=== PATIENT | female | born 1960 | race Caucasian/White ===

== ENCOUNTER 2024-07-31 13:48 | Inpatient (IN) | payer OTHER, SELFPAY ==
--- OUTSIDE RECORDS SUMMARY | 2024-07-31 15:12 | XMS_ITS | Clinical Summary ---
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 5 Active OLANZapine (ZyPREXA ZYDIS) 5 mg disintegrating tablet 1 tablet (5 mg total) if needed (daily). 5 Active hydrOXYzine pamoate (VISTARIL) 50 mg capsule 1 capsule (50 mg total) every 4 (four) hours if needed for anxiety. 5 Active metFORMIN (GLUCOPHAGE) 500 mg tablet Take 1 tablet (500 mg total) by mouth 1 (one) time each day. 5 Active cloNIDine (CATAPRES) 0.1 mg tablet 1 tablet (0.1 mg total) 2 (two) times a day if needed (2nd line anxiety). 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 07/08/2024 11:07 AM EST - 07/09/2024 6:40 PM [facility] Emergency [address] [place] [address] Gabi Abreu, Mart Espinoza, Everette Carlos MD Depressive conduct disorder (Primary Dx); Schizoaffective disorder, unspecified type (CMS/HCC); Severe recurrent major depression with psychotic features (CMS/HCC) Discharge Disposition: Another Health Care Institution Not Defined 06/25/2024 2:21 AM EST - 06/25/2024 9:26 AM [facility] Emergency [address] [place] [address] Discharge Disposition: Left Against Medical Advice 06/24/2024 9:11 PM EST - 06/24/2024 11:19 PM [facility] Emergency [address] [place] [phone] Discharge Disposition: Left Against Medical Advice 05/08/2024 5:16 AM EST - 05/08/2024 8:36 AM [facility] Emergency [address] [place] [phone] Jayson Dueñas MD Kenton, Mark A, MD Abdominal pain with vomiting (Primary Dx) Discharge Disposition: Home or Self Care from Last 3 Months Surgical History Surgery Date Site/Laterality Comments SECTION FOOT SURGERY Medical History Medical History Date Comments Diabetes mellitus (CMS/HCC) Hypertension High cholesterol Arthritis Neuropathy Social History Tobacco Use Types Packs/Day Years Used Date Smoking Tobacco: Every Day Cigarettes Smokeless Tobacco: Never Tobacco Cessation:Ready to Q uit: Not Asked; Counseling Given: Not Answered Alcohol Use Standard Drinks/Week Comments Not Currently 0 (1 standard drink = 0.6 oz pur e alcohol) Comments Unknown Sex and Gender Information Value Date Recorded Sex Assigned at Female 06/24/2024 11:14 PM EST Legal Sex Female 2:21 PM EST Gender Identity Female 06/24/2024 11:14 PM EST Sexual Orientation Straight 06/24/2024 11 :14 PM EST Obstetrics History Last Filed Vital Signs Vital Sign Reading Time Taken Comments Blood Pressure 116/89 07/31/2024 1:01 PM EST Pulse 91 07/31/2024 1:01 PM EST Temperature 36.8 ??C (98.3 ??F) 07/31/2024 3:51 AM ES T Respiratory Rate 20 07/31/2024 1:01 PM EST Oxygen Saturation 97% 07/31/2024 1:01 PM EST Inhaled Oxygen Concentration - - Weight 90.7 kg (200 lb) 07/30/2024 4:55 PM EST Height 160 cm (5' 3 ) 07/30/2024 4:55 PM EST Body Mass Index 35.43 07/30/2024 4:55 PM EST Plan of Treatment Health Maintenance Due Date Last Done Comments Breast Cancer Screening 1960 Diabetes: Annual Foot Exam 11/30/1969 Diabetes: Annual Retina Eye Exam 11/30/1969 Cervical Cancer Screening: Pap Smear 11/30/1980 Pneumococcal Vaccine: 50+ Years (2 of 2 - PCV) 07/08/2009 07/08/2008 Pneumococcal Vaccine: Pediatrics (0 to 5 Years) and At-Risk Patients (6 to 64 Years) (2 of 2 - PCV) 07/08/2009 07/08/2008 Zoster Vaccines (1 of 2) 11/30/2009 Colorectal Cancer Screening: Colonoscopy 05/18/2022 Depression Screening 05/18/2022 HIV Screening 05/18/2022 Hepatitis C Screening 05/18/2022 Social Influencers of Health Screening 05/18/2022 COVID-19 Vaccine ( season) 2024 Influenza Vaccine (#1) 2024 07/19/2017, 2007 Diabetes: Annual Urine Albumin-Creatinine Ratio (uACR) 05/08/2024 Diabetes: Blood Sugar Control Test (HGBA1C) 01/10/2025 07/13/2024 Diabetes: Annual GFR (Glomerular Filtration Rate) 07/30/2025 07/30/2024, 07/13/2024, 07/08/2024, Additional history exists Hypertension/CHF/CAD Annual BMP Blood Test 07/30/2025 07/30/2024, 07/13/2024, 07/08/2024, Additional history exists DTaP,Tdap,and Td Vaccines (3 - Td or Tdap) 11/04/2026 11/04/2016, 11/09/2012 Cholesterol Screening (Lipid Panel) 07/13/2029 07/13/2024 RSV Immunization Patients 60+ Years Old (1 - 1-dose 75+ series) 11/30/2034 HIB Vaccines Aged Out No longer eligi ble based on patient's age to complete this topic HPV Vaccines Aged Out No longer eligi ble based on patient's age to complete this topic Hepatitis A Vaccines Aged Out No long er eligible based on patient's age to complete this topic Hepatitis B Vaccines Aged Out No long er eligible based on patient's age to complete this topic IPV Vaccines Aged Out No longer eligi ble based on patient's age to complete this topic MMR Vaccines Aged Out No longer eligi ble based on patient's age to complete this topic Meningococcal ACWY Vaccine Aged Out N o longer eligible based on patient's age to complete this topic Meningococcal B Vacine Aged Out No lo nger eligible based on patient's age to complete this topic RSV Immunization Patients Under 20 months Aged Out No longer eligible based on patient's age to complete this topic Varicella Vaccines Aged Out No longer eligible based on patient's age to complete this topic Procedures Procedure Name Priority Date/Time Associated Diagnosis Comments METHADONE SCREEN, URINE STAT 07/30/19 8:05 PM EST PHENCYCLIDINE, URINE STAT 07/30/2024 8:05 PM EST BUPRENORPHINE SCREEN, URINE STAT 07/30/2024 8:05 PM EST DRUG ABUSE SCREEN 8A PANEL, URINE STAT 07/30/2024 8:05 PM EST ECG 12-LEAD STAT 07/30/2024 5:36 PM EST CBC WITH AUTO DIFFERENTIAL STAT 07/30/2024 5:26 PM EST SALICYLATE LEVEL STAT 07/30/2024 5:26 PM EST ACETAMINOPHEN LEVEL STAT 07/30/2024 5 :26 PM EST ETHANOL STAT 07/30/2024 5:26 PM EST COMPREHENSIVE METABOLIC PANEL STAT 07/30/2024 5:26 PM EST CBC AND DIFFERENTIAL STAT 07/30/2024 5:26 PM EST CBC WITH AUTO DIFFERENTIAL Routine 07/13/2024 7:00 AM EST 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 (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 HEMOGLOBIN A1C Routine 07/13/2024 7:00 AM EST Other shelter (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 CBC AND DIFFERENTIAL Routine 07/13/2024 7:00 AM EST Other shelter (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 THYROID STIMULATING HORMONE WITH REFLEX TO FREE T4 AND FREE T3 Routine 07/13/2024 7:00 AM EST Other shelter (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 LIPID PANEL WITH REFLEX TO DIRECT LDL Routine 07/13/2024 7:00 AM EST Other 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 (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 COMPREHENSIVE METABOLIC PANEL Routine 07/13/2024 7:00 AM EST Other shelter (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 [id number], QUALITATIVE REAL-TIME RT-PCR, INTERNAL LAB STAT 07/09/2024 5:49 PM EST POCT GLUCOSE BLOOD Routine 07/08/2024 5: 07 PM EST POCT GLUCOSE BLOOD Routine 07/08/2024 4: 19 PM EST POCT GLUCOSE BLOOD Routine 07/08/2024 2: 03 PM EST METHADONE SCREEN, URINE STAT 07/08/19 1:27 PM EST PHENCYCLIDINE, URINE STAT 07/08/2024 1:27 PM EST BUPRENORPHINE SCREEN, URINE STAT 07/08/2024 1:27 PM EST DRUG ABUSE SCREEN 8A PANEL, URINE STAT 07/08/2024 1:27 PM EST ECG 12-LEAD STAT 07/08/2024 12:01 PM EST CBC WITH AUTO DIFFERENTIAL STAT 07/08/2024 11:29 AM EST SALICYLATE LEVEL STAT 07/08/2024 11:2 9 AM EST ACETAMINOPHEN LEVEL STAT 07/08/2024 1 1:29 AM EST ETHANOL STAT 07/08/2024 11:29 AM EST COMPREHENSIVE METABOLIC PANEL STAT 07/08/2024 11:29 AM EST CBC AND DIFFERENTIAL STAT 07/08/2024 11:29 AM EST ECG ANNOTATED 07/08/2024 CBC WITH AUTO DIFFERENTIAL STAT 06/24/2024 9:46 PM EST BETA HYDROXYBUTYRATE STAT 06/24/2024 9:46 PM EST LIPASE STAT 06/24/2024 9:46 PM EST COMPREHENSIVE METABOLIC PANEL STAT 06/24/2024 9:46 PM EST CBC AND DIFFERENTIAL STAT 06/24/2024 9:[address] ABDOMEN PELVIS W CONTRAST STAT 05/08/2024 6:45 AM EST CBC WITH AUTO DIFFERENTIAL STAT 05/08/2024 5:40 AM EST LIPASE STAT 05/08/2024 5:40 AM EST COMPREHENSIVE METABOLIC PANEL STAT 05/08/2024 5:40 AM EST CBC AND DIFFERENTIAL STAT 05/08/2024 5:40 AM EST from Last 3 Months Results * (ABNORMAL) Drug abuse screen 8a panel, urine (07/30/2024 8:05 PM EST) Only the most recent of2 resultswithin the time period is included. [facility] Amphetamine Screen, Ur Negative Negative LAB CHEMISTRY METHOD 5 9:25 PM [facility] LAB Comment:Certain OTC medicati ons containing ephedrine, phenylephrine, pseudoephedrine and phenylpropanolamine can cause false positive results. Barbiturate Screen, Ur Negative Negative LAB CHEMISTRY METHOD 5 9:25 PM [facility] Benzodiazepine Screen, Ur Negative Negative LAB CHEMISTRY METHOD 5 9:25 PM [facility] Cocaine Screen, Ur Positive(A ) Negative LAB CHEMISTRY METHOD 5 9:25 PM [facility] Opiate Screen, Ur Negative Negative LAB CHEMISTRY METHOD 5 9:25 PM [facility] Cannabinoid (THC) Screen, Ur Negative Negative LAB CHEMISTRY METHOD 5 9:25 PM [facility] Comment:Specimens from patie nts taking pantoprazole sodium (Protonix) have been shown to produce false positive results. Oxycodone Screen, Ur Negative Negative LAB CHEMISTRY METHOD 5 9:25 PM [facility] Fentanyl, Ur Negative Negative LAB CHEMISTRY METHOD 5 9:25 PM [facility] Urine Urine specimen obtained by clean catch procedure / Unknown Non-blood Collection / Unknown 07/30/2024 8:05 PM EST 07/30/2024 8:55 PM [facility] - 07/30/2024 9:25 PM EST Assay cutoffs: Amphetamines ? 1000 ng/mL Barbiturates ?200 ng/mL Benzodiazepines ?? 200 ng/mL Cocaine ? 300 ng/mL Fentanyl ?1 ng/mL Opiates ? 300 ng/mL Oxycodone ? 100 ng/mL THC ?50 ng/mL Semi-quantitative assay for screening purposes only. Unconfirmed screening result should not be used for non-medical purposes. *ALTERNATE METHOD CONFIRMATION DONE UPON REQUEST ONLY* Quintin Rodriguez MD LAB URINE ORDERABLES Final Resu lt Performing Organization Address [facility]/ZIP Co de Phone Number [facility] [address] [place] [address], * Buprenorphine screen, urine (07/30/2024 8:05 PM EST) Only the most recent of2 resultswithin the time period is included. [facility] Buprenorphine Screen Urine Negative Negative LAB CHEMISTRY METHOD 07/30/2024 9:25 PM EST [facility] Urine Urine specimen obtained by clean catch procedure / Unknown Non-blood Collection / Unknown 07/30/2024 8:05 PM EST 07/30/2024 8:55 PM EST Narrative [facility] - 07/30/2024 9:25 PM EST Assay cutoff 5 ng/mL Semi-quantitative assay for screening purposes only. Unconfirmed screening result should not be used for non-medical purposes. *ALTERNATE METHOD CONFIRMATION DONE UPON REQUEST ONLY* Quintin Rodriguez MD LAB URINE ORDERABLES Final Resu lt Performing Organization Address [facility]/ZIP Co de Phone Number [facility] [address] [place] [address], * Methadone, urine (07/30/2024 8:05 PM EST) Only the most recent of2 resultswithin the time period is included. [facility] Methadone Screen, Urine Negative Negative LAB CHEMISTRY METHOD 07/30/2024 9:25 PM EST [facility] Comment: Assay cutoff 300 ng/mL Semi-quantitative assay for screening purposes only. Unconfirmed screening result should not be used for non-medical purposes. *ALTERNATE METHOD CONFIRMATION DONE UPON REQUEST ONLY* Urine Urine specimen obtained by clean catch procedure / Unknown Non-blood Collection / Unknown 07/30/2024 8:05 PM EST 07/30/2024 8:55 PM EST Quintin Rodriguez MD LAB URINE ORDERABLES Final Resu lt Performing Organization Address [facility] de Phone Number [facility] [address] [place] [address], [place] [phone] * Phencyclidine, urine (07/30/2024 8:05 PM EST) Only the most recent of2 resultswithin the time period is included. [facility] PCP Scrn, Ur Negative Negative LAB CHEMISTRY METHOD 07/30/2024 9:25 PM EST [facility] Comment: Assay cutoff 25 ng/mL Semi-quantitative assay for screening purposes only. Unconfirmed screening result should not be used for non-medical purposes. *ALTERNATE METHOD CONFIRMATION DONE UPON REQUEST ONLY* Urine Urine specimen obtained by clean catch procedure / Unknown Non-blood Collection / Unknown 07/30/2024 8:05 PM EST 07/30/2024 8:55 PM EST Quintin Rodriguez MD LAB URINE ORDERABLES Final Resu lt Performing Organization Address [facility] Co de Phone Number [facility] [address] [place] [address], [place] [phone] * ECG 12 lead (07/30/2024 5:36 PM EST) Only the most recent of2 resultswithin the time period is included. Ventricular Rate ECG 85 BPM GEMUSE Atrial Rate 85 BPM GEMUSE P-R Interval 152 ms GEMUSE QRS Duration 88 ms GEMUSE Q-T Interval 370 ms GEMUSE QTc 440 ms GEMUSE P Wave [place] 42 degrees GEMUSE T [place] 20 degrees GEMUSE ECG Interpretation Normal sinus rhythm Normal ECG When compared with ECG of 08-JUL-2024 12:01, No significant change was found Confirmed by Salomon NANCE YUFENG ([id number]) on 07/30/2024 8:05:30 PM GEMUSE 07/30/2024 5:36 PM EST 07/30/2024 8:05 PM EST us Quintin Rodriguez MD ECG ORDERABLES Final Result GEMUSE * CBC auto differential (07/30/2024 5:26 PM EST) Only the most recent of5 resultswithin the time period is included. [facility] WBC 8.4 4.8 - 10.8 K/mcL LAB HEMETOLOGY METHOD 07/30/2024 5:53 PM [facility] RBC 4.30 3.80 - 4.80 M/mcL LAB HEMETOLOGY METHOD 07/30/2024 5:53 PM [facility] Hemoglobin 12.7 11.5 - 16.0 g/dL LAB HEMETOLOGY METHOD 07/30/2024 5:53 PM [facility] Hematocrit 38.2 35.0 - 47.0 % LAB HEMETOLOGY METHOD 07/30/2024 5:53 PM [facility] MCV 89.3 79.0 - 98.0 FL LAB HEMETOLOGY METHOD 07/30/2024 5:53 PM [facility] MCH 29.7 27.0 - 32.0 pcg LAB HEMETOLOGY METHOD 07/30/2024 5:53 PM [facility] LAB MCHC 33.2 32.0 - 37.0 g/dL LAB HEMETOLOGY METHOD 07/30/2024 5:53 PM [facility] RDW 13.2 11.0 - 15.0 % LAB HEMETOLOGY METHOD 07/30/2024 5:53 PM [facility] Platelets 244 130 - 400 K/mcL LAB HEMETOLOGY METHOD 07/30/2024 5:53 PM [facility] MPV 10.8 7.0 - 11.0 FL LAB HEMETOLOGY METHOD 07/30/2024 5:53 PM [facility] NRBC 0.0 <1.0 % LAB HEMETOLOGY METHOD 07/30/2024 5:53 PM [facility] NRBC Absolute 0.00 <0.10 K/mcL LAB HEMETOLOGY METHOD 07/30/2024 5:53 PM [facility] Neutrophils Relative 63.0 % LAB HEMETOLOGY METHOD 07/30/2024 5:53 PM [facility] Lymphocytes Relative 26.5 % LAB HEMETOLOGY METHOD 07/30/2024 5:53 PM [facility] Monocytes Relative 7.4 % LAB HEMETOLOGY METHOD 07/30/2024 5:53 PM [facility] Eosinophils Relative 2.3 % LAB HEMETOLOGY METHOD 07/30/2024 5:53 PM [facility] Basophils Relative 0.4 % LAB HEMETOLOGY METHOD 07/30/2024 5:53 PM [facility] Immature Granulocytes Relative 0.4 % LAB HEMETOLOGY METHOD 07/30/2024 5:53 PM [facility] Neutrophils Absolute 5.30 1.50 - 7.00 K/mcL LAB HEMETOLOGY METHOD 07/30/2024 5:53 PM [facility] Lymphocytes Absolute 2.22 1.00 - 5.00 K/mcL LAB HEMETOLOGY METHOD 07/30/2024 5:53 PM EST [facility] Monocytes Absolute 0.62 0.20 - 1.00 K/mcL LAB HEMETOLOGY METHOD 07/30/2024 5:53 PM EST [facility] Eosinophils Absolute 0.19 0.00 - 0.50 K/[facility] LAB HEMETOLOGY METHOD 07/30/2024 5:53 PM EST [facility] Basophils Absolute 0.03 0.00 - 0.20 K/[facility] LAB HEMETOLOGY METHOD 07/30/2024 5:53 PM EST [facility] Immature Granulocytes Absolute 0.03 0.00 - 0.03 K/[facility] LAB HEMETOLOGY METHOD 07/30/2024 5:53 PM [facility] Blood Venous blood specimen / Unknown Venipuncture / Unknown 07/30/2024 5:26 PM EST 07/30/2024 5:39 PM EST Quintin Rodriguez MD LAB BLOOD ORDERABLES Final Resu lt Performing Organization Address City/[facility]/ZIP Co de Phone Number [facility] [address] [place] [address], [place] [phone] * Ethanol (07/30/2024 5:26 PM EST) Only the most recent of2 resultswithin the time period is included. Ethanol Level 8 0 - 10 mg/dL LAB CHEMISTRY METHOD 07/30/2024 6:22 PM EST [facility] Blood Venous blood specimen / Unknown Venipuncture / Unknown 07/30/2024 5:26 PM EST 07/30/2024 5:39 PM EST Quintin Rodriguez MD LAB BLOOD ORDERABLES Final Resu lt Performing Organization Address City/[facility]/ZIP Co de Phone Number [facility] [address] [place] [address], [place] [phone] * (ABNORMAL) Acetaminophen level (07/30/2024 5:26 PM EST) Only the most recent of2 resultswithin the time period is included. Acetaminophen Level 2.3(L) 10.0 - 30.0 mcg/mL LAB CHEMISTRY METHOD 07/30/2024 6:06 PM EST [facility] Blood Venous blood specimen / Unknown Venipuncture / Unknown 07/30/2024 5:26 PM EST 07/30/2024 5:39 PM EST Qiuntin Rodriguez MD LAB BLOOD ORDERABLES Final Resu lt Performing Organization Address [facility]/ZIP Co de Phone Number [facility] [address] [place] [address], [place] [phone] * (ABNORMAL) Salicylate level (07/30/2024 5:26 PM EST) Only the most recent of2 resultswithin the time period is included. Salicylate Level 1.7(L) 2.0 - 29.0 mg/dL LAB CHEMISTRY METHOD 07/30/2024 6:06 PM EST [facility] Blood Venous blood specimen / Unknown Venipuncture / Unknown 07/30/2024 5:26 PM EST 07/30/2024 5:39 PM EST Quintin Rodriguez MD LAB BLOOD ORDERABLES Final Resu lt Performing Organization Address City/[facility]/ZIP Co de Phone Number [facility] [address] [place] [address], [place] [phone] * (ABNORMAL) Comprehensive metabolic panel (07/30/2024 5:26 PM EST) Only the most recent of5 resultswithin the time period is included. Sodium 136 133 - 145 mmol/L LAB CHEMISTRY METHOD 07/30/2024 6:22 PM EST [facility] Potassium 3.9 3.5 - 5.5 mmol/L LAB CHEMISTRY METHOD 07/30/2024 6:22 PM [facility] Chloride 106 96 - 110 mmol/L LAB CHEMISTRY METHOD 07/30/2024 6:22 PM [facility] CO2 23 21 - 32 mmol/L LAB CHEMISTRY METHOD 07/30/2024 6:22 PM [facility] Anion Gap 7 3 - 11 LAB CHEMISTRY METHOD 07/30/2024 6:22 PM [facility] Glucose 297(H) 70 - 100 mg/dL LAB CHEMISTRY METHOD 07/30/2024 6:22 PM [facility] BUN 12 5 - 25 mg/dL LAB CHEMISTRY METHOD 07/30/2024 6:22 PM [facility] Creatinine 0.90 0.50 - 1.10 mg/dL LAB CHEMISTRY METHOD 07/30/2024 6:22 PM [facility] eGFR 72 >=60 mL/min/1. 73m2 LAB CHEMISTRY METHOD 07/30/2024 6:22 PM [facility] Comment:Calculation based on the??Chronic Kidney Disease Epidemiology Collaboration (CKD-EPI) equation refit??without adjustment for race. BUN/Creatinine Ratio 13.3 LAB CHEMISTRY METHOD 07/30/2024 6:22 PM [facility] Calcium 9.1 8.5 - 10.5 mg/dL LAB CHEMISTRY METHOD 07/30/2024 6:22 PM [facility] AST (SGOT) 4(L) 10 - 42 unit/L LAB CHEMISTRY METHOD 07/30/2024 6:22 PM [facility] ALT (SGPT) 12 10 - 60 unit/L LAB CHEMISTRY METHOD 07/30/2024 6:22 PM [facility] Alkaline Phosphatase 160(H) 42 - 121 unit/L LAB CHEMISTRY METHOD 07/30/2024 6:22 PM [facility] Total Protein 6.2 6.0 - 8.0 g/dL LAB CHEMISTRY METHOD 07/30/2024 6:22 PM EST [facility] Albumin 3.1(L) 3.2 - 5.0 g/dL LAB CHEMISTRY METHOD 07/30/2024 6:22 PM EST [facility] Total Bilirubin 0.2 0.0 - 1.4 mg/dL LAB CHEMISTRY METHOD 07/30/2024 6:22 PM EST [facility] Blood Venous blood specimen / Unknown Venipuncture / Unknown 07/30/2024 5:26 PM EST 07/30/2024 5:39 PM EST Quintin Rodriguez MD LAB BLOOD ORDERABLES Final Resu lt Performing Organization Address City/[facility]/ZIP Co de Phone Number [facility] [address] [place] [address], [place] [phone] * Thyroid stimulating hormone with reflex to free t4 and free t3 (07/13/2024 7:00 AM EST) TSH 1.49 0.40 - 4.00 mcIU/mL LAB CHEMISTRY METHOD 07/13/2024 11:49 AM EST [facility] Blood Venous blood specimen / Unknown Venipuncture / Unknown 07/13/2024 7:00 AM EST 07/13/2024 10:13 AM EST Luisa Thomas LAB BLOOD ORDERABLES Final Resul t [facility] [address] [place] [address], [place] [phone] * (ABNORMAL) Lipid panel with reflex to direct LDL (07/13/2024 7:00 AM EST) Cholesterol 252(H) 0 - 200 mg/dL LAB CHEMISTRY METHOD 07/13/2024 11:42 AM EST [facility] Triglycerides 208(H) 0 - 150 mg/dL LAB CHEMISTRY METHOD 07/13/2024 11:42 AM EST [facility] HDL 45 >=40 mg/dL LAB CHEMISTRY METHOD 07/13/2024 11:42 AM [facility] LDL Calculated 165(H) 0 - 100 mg/dL LAB CHEMISTRY METHOD 07/13/2024 11:42 AM [facility] VLDL Cholesterol Damian 41.6 mg/dL LAB CHEMISTRY METHOD 07/13/2024 11:42 AM [facility] Non HDL Chol. (LDL+VLDL) 207(H) <145 mg/dL LAB CHEMISTRY METHOD 07/13/2024 11:42 AM [facility] Chol/HDL Ratio 5.6(H) 0.0 - 4.4 LAB CHEMISTRY METHOD 07/13/2024 11:42 AM [facility] Blood Venous blood specimen / Unknown Venipuncture / Unknown 07/13/2024 7:00 AM EST 07/13/2024 10:13 AM EST [facility] LAB BLOOD ORDERABLES Final Resul t [facility] [address] [place] [address], * (ABNORMAL) Hemoglobin A1c (07/13/2024 7:00 AM EST) Hemoglobin A1C 10.3(H) <6.5 % LAB CHEMISTRY METHOD 07/14/2024 9:18 AM EST [facility] Mean Bld Glu Estim. 249 mg/dL LAB CHEMISTRY METHOD 07/14/2024 9:18 AM EST [facility] Blood Venous blood specimen / Unknown Venipuncture / Unknown 07/13/2024 7:00 AM EST 07/13/2024 10:13 AM EST [facility] LAB BLOOD ORDERABLES Final Resul t [facility] [address] [place] [address], * (ABNORMAL) [id number], qualitative RT-PCR, internal lab (07/09/2024 5:49 PM EST) SARS COV-2 Detected( A) Not Detected LAB MICROBIOLOGY METHOD 07/09/2024 7:29 PM EST [facility] Swab Both anterior nares / Unknown Non-blood Collection / Unknown 07/09/2024 5:49 PM EST 07/09/2024 6:33 PM EST Narrative [facility] - 07/09/2024 7:29 PM EST Disclaimer: The manner in which this information is used to guide patient care is the responsibility of the healthcare provider. Testing was performed using the [employer] GeneXpert Xpress CoV-2 Plus PCR Assay. This test has been authorized by the FDA under an Emergency Use Authorization (EUA). This test is only authorized for the duration of time the declaration that circumstances exist justifying the authorization of the emergency use of in vitro diagnostic tests for detection of SARS-CoV-2 virus and/or diagnosis of COVID-19 infection under section 564(b)(1) of the Act, 21 U.S.C. 360bbb-3 (b)(1), unless the authorization is terminated or revoked sooner. Reference Range: Not Detected Fact sheet for Healthcare providers can be found at: https://www.fda.gov/media/233327/download Fact sheet for Healthcare patients can be found at: Http;//www.fda.gov/media/964658/download Everette Soni MD LAB MICROBIOLOGY - GENERAL ORDERABLES Final Result Performing Organization Address City/[facility]/ZIP Co de Phone Number [facility] [address] [place] [address], * (ABNORMAL) POCT Glucose, blood (07/08/2024 5:07 PM EST) Only the most recent of3 resultswithin the time period is included. [facility] Glucose POCT 209(H) 70 - 100 mg/dL 07/08/2024 5:08 PM EST [facility] Blood Capillary blood specimen / Unknown 07/08/2024 5:07 PM EST 07/08/2024 5:09 PM EST Gabi Abreu DO LAB POINT OF CARE TEST DOCKED DEVICE UNSOLICITED RESULTS Final Result Performing Organization Address City/[facility]/ZIP Co de Phone Number [facility] [address] [place] [address], * ECG-Annotated (07/08/2024) Provider Onbase MD ECG ORDERABLES Final Result * Beta hydroxybutyrate (06/24/2024 9:46 PM EST) [facility] Beta-Hydroxybu tyrate 1.1 0.2 - 2.8 mg/dL LAB CHEMISTRY METHOD 06/24/2024 10:21 PM EST [facility] Blood Venous blood specimen / Unknown Venipuncture / Unknown 06/24/2024 9:46 PM EST 06/24/2024 9:50 PM EST Cecilio MILLER LAB BLOOD ORDERABLES Final Resul t [facility] [address] [place] [address], [place] [phone] * (ABNORMAL) Lipase (06/24/2024 9:46 PM EST) Only the most recent of2 resultswithin the time period is included. [facility] Lipase 12(L) 13 - 75 unit/L LAB CHEMISTRY METHOD 06/24/2024 10:22 PM EST [facility] Blood Venous blood specimen / Unknown Venipuncture / Unknown 06/24/2024 9:46 PM EST 06/24/2024 9:50 PM EST Cecilio MILLER LAB BLOOD ORDERABLES Final Resul t [facility] [address] [place] [address], [place] [phone] * CT Abdomen Pelvis w Contrast (05/08/2024 6:45 AM EST) Anatomical Region Laterality Modality Body Computed Tomogra phy 05/08/2024 7:13 AM EST Impressions 05/08/2024 7:13 AM EST Impression: No acute process by CT. Several incidental findings. This document has been electronically signed by: Samir Mccormack MD on 05/08/2024 07:13:35 Narrative 05/08/2024 7:[address] abdomen and pelvis with contrast Comparison: None Findings: No consolidation or effusion. The liver, spleen, adrenal glands and pancreas are unremarkable. The gallbladder is surgically absent. Mild postsurgical prominence of the common bile duct. The kidneys, ureters and bladder are within normal limits. Uterus and adnexa are unremarkable. No bowel obstruction. Normal appendix. [id number] atherosclerotic disease. No acute osseous finding. Procedure Note Samir Mccormack MD - 05/08/2024 CT abdomen and pelvis with contrast Comparison: None Findings: No consolidation or effusion. The liver, spleen, adrenal glands and pancreas are unremarkable. The gallbladder is surgically absent. Mild postsurgical prominence ofthe common bile duct. The kidneys, ureters and bladder are within normal limits. Uterus and adnexa are unremarkable. No bowel obstruction. Normal appendix. [id number] atherosclerotic disease. No acute osseous finding. IMPRESSION: Impression: No acute process by CT. Several incidental findings. This document has been electronically signed by: Samir Mccormack MD on 05/08/2024 07:13:35 Jayson Dueñas MD IMG CT PROCEDURES Final Result from Last 3 Months Additional Health Concerns Infection Onset Date Last Indicated COVID-19 07/09/2024 07/09/2024 Insurance [facility] Care Teams [employer] Relationship Specialty Start Date End Date Physician, Pcp Unknown PCP - General 06/24/24
--- OUTSIDE RECORDS SUMMARY | 2024-07-31 15:12 | XMS_ITS | Encounter Summary ---
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 reports symptoms of MDD with psychotic features. She has no current access to psychiatric prescribers in the community. The patient would benefit from a voluntary IPLOC for medication management and stabilization. Recommendations were discussed with requesting provider. It was a pleasure to assist Dana Mon here at [facility]. This report is written and finalized by: Marlon Hathaway RN, PMHNP Student Behavioral Health Surpervisor [facility] (Tel): [phone] / : [phone] Cosigned by CECI Marquez at 07/09/2024 2:27 PM EST documented in this encounter Plan of Treatment Not on file documented as of this encounter Procedures Procedure Name Priority Date/Time Associated Diagnosis Comments [id number], QUALITATIVE REAL-TIME RT-PCR, INTERNAL LAB STAT 07/09/2024 5:49 PM EST POCT GLUCOSE BLOOD Routine 07/08/2024 5: 07 PM EST POCT GLUCOSE BLOOD Routine 07/08/2024 4: 19 PM EST POCT GLUCOSE BLOOD Routine 07/08/2024 2: 03 PM EST DRUG ABUSE SCREEN 8A PANEL, URINE STAT 07/08/2024 1:27 PM EST BUPRENORPHINE SCREEN, URINE STAT 07/08/2024 1:27 PM EST METHADONE SCREEN, URINE STAT 07/08/2024 1:27 PM EST PHENCYCLIDINE, URINE STAT 07/08/2024 1:27 PM EST ECG 12-LEAD STAT 07/08/2024 12:01 PM EST CBC WITH AUTO DIFFERENTIAL STAT 07/08/2024 11:29 AM EST CBC AND DIFFERENTIAL STAT 07/08/2024 11:29 AM EST ETHANOL STAT 07/08/2024 11:29 AM EST ACETAMINOPHEN LEVEL STAT 07/08/2024 1 1:29 AM EST SALICYLATE LEVEL STAT 07/08/2024 11:2 9 AM EST COMPREHENSIVE METABOLIC PANEL STAT 07/08/2024 11:29 AM EST ECG ANNOTATED 07/08/2024 documented in this encounter Results * (ABNORMAL) [id number], qualitative RT-PCR, internal lab (07/09/2024 5:49 PM EST) SARS COV-2 Detected( A) Not Detected LAB MICROBIOLOGY METHOD 07/09/2024 7:29 PM EST [facility] Swab Both anterior nares / Unknown Non-blood Collection / Unknown 07/09/2024 5:49 PM EST 07/09/2024 6:33 PM EST Narrative [facility] - 07/09/2024 7:29 PM EST Disclaimer: The manner in which this information is used to guide patient care is the responsibility of the healthcare provider. Testing was performed using the [employer] GeneXpert Xpress CoV-2 Plus PCR Assay. This [...] for Healthcare providers can be found at: https://www.fda.gov/media/168881/download Fact sheet for Healthcare patients can be found at: Http;//www.fda.gov/media/120634/download us Everette Soni MD LAB MICROBIOLOGY - GENERAL ORDERABLES Final Result [facility] [address] [place] [address], [place] [phone] * (ABNORMAL) POCT Glucose, blood (07/08/2024 5:07 PM EST) Glucose POCT 209(H) 70 - 100 mg/dL 07/08/2024 5:08 PM EST [facility] Blood Capillary blood specimen / Unknown 07/08/2024 5:07 PM EST 07/08/2024 5:09 PM EST Gabi Abreu LAB POINT OF CARE TEST DOCKED DEVICE UNSOLICITED RESULTS Final Result [facility] [address] [place] [address], [place] [phone] * (ABNORMAL) POCT Glucose, blood (07/08/2024 4:19 PM EST) Glucose POCT 236(H) 70 - 100 mg/dL 07/08/2024 4:22 PM EST [facility] Blood Capillary blood specimen / Unknown 07/08/2024 4:19 PM EST 07/08/2024 4:23 PM EST Gabi Abreu DO LAB POINT OF CARE TEST DOCKED DEVICE UNSOLICITED RESULTS Final Result [facility] [address] [place] [address], [place] [phone] * (ABNORMAL) POCT Glucose, blood (07/08/2024 2:03 PM EST) Glucose POCT 306(H) 70 - 100 mg/dL 07/08/2024 2:03 PM EST [facility] Blood Capillary blood specimen / Unknown 07/08/2024 2:03 PM EST 07/08/2024 2:04 PM EST Gabi Barrett Abreu LAB POINT OF CARE TEST DOCKED DEVICE UNSOLICITED RESULTS Final Result Performing Organization Address [facility] Co de Phone Number [facility] [address] [place] [address], [place] [phone] * Methadone, urine (07/08/2024 1:27 PM EST) Methadone Screen, Urine Negative Negative LAB CHEMISTRY METHOD 07/08/2024 2:24 PM EST [facility] Comment: Assay cutoff 300 ng/mL Semi-quantitative assay for screening purposes only. Unconfirmed screening result should not be used for non-medical purposes. *ALTERNATE METHOD CONFIRMATION DONE UPON REQUEST ONLY* Urine Urine specimen obtained by clean catch procedure / Unknown Non-blood Collection / Unknown 07/08/2024 1:27 PM EST 07/08/2024 1:51 PM EST Dung Sterling Barrett Abreu LAB URINE ORDERABLES Suze l Result Performing Organization Address [facility] de Phone Number [facility] [address] [place] [address], [place] [phone] * Phencyclidine, urine (07/08/2024 1:27 PM EST) PCP Scrn, Ur Negative Negative LAB CHEMISTRY METHOD 07/08/2024 2:24 PM EST [facility] Comment: Assay cutoff 25 ng/mL Semi-quantitative assay for screening purposes only. Unconfirmed screening result should not be used for non-medical purposes. *ALTERNATE METHOD CONFIRMATION DONE UPON REQUEST ONLY* Urine Urine specimen obtained by clean catch procedure / Unknown Non-blood Collection / Unknown 07/08/2024 1:27 PM EST 07/08/2024 1:51 PM EST Gabi Barrett Abreu LAB URINE ORDERABLES Suze l Result Performing Organization Address [facility]/ZIP Co de Phone Number [facility] [address] [place] [address], [place] [phone] * Buprenorphine screen, urine (07/08/2024 1:27 PM EST) [facility] Buprenorphine Screen Urine Negative Negative LAB CHEMISTRY METHOD 07/08/2024 2:54 PM EST [facility] Urine Urine specimen obtained by clean catch procedure / Unknown Non-blood Collection / Unknown 07/08/2024 1:27 PM EST 07/08/2024 1:51 PM EST [facility] - 07/08/2024 2:54 PM EST Assay cutoff 5 ng/mL Semi-quantitative assay for screening purposes only. Unconfirmed screening result should not be used for non-medical purposes. *ALTERNATE METHOD CONFIRMATION DONE UPON REQUEST ONLY* Gabi Greenfieldny Brady DO LAB URINE ORDERABLES Suze l Result [facility] [address] [place] [address], [place] [phone] * (ABNORMAL) Drug abuse screen 8a panel, urine (07/08/2024 1:27 PM EST) [facility] Amphetamine Screen, Ur Negative Negative LAB CHEMISTRY METHOD 2:24 PM [facility] Comment:Certain OTC medicati ons containing ephedrine, phenylephrine, pseudoephedrine and phenylpropanolamine can cause false positive results. Barbiturate Screen, Ur Negative Negative LAB CHEMISTRY METHOD 5 2:24 PM EST [facility] Benzodiazepine Screen, Ur Negative Negative LAB CHEMISTRY METHOD 5 2:24 PM [facility] Cocaine Screen, Ur Positive(A ) Negative LAB CHEMISTRY METHOD 5 2:24 PM [facility] Opiate Screen, Ur Negative Negative LAB CHEMISTRY METHOD 5 2:24 PM [facility] Cannabinoid (THC) Screen, Ur Negative Negative LAB CHEMISTRY METHOD 5 2:24 PM EST [facility] Comment:Specimens from patie nts taking pantoprazole sodium (Protonix) have been shown to produce false positive results. Oxycodone Screen, Ur Negative Negative LAB CHEMISTRY METHOD 5 2:24 PM EST [facility] Fentanyl, Ur Negative Negative LAB CHEMISTRY METHOD 5 2:24 PM EST [facility] Urine Urine specimen obtained by clean catch procedure / Unknown Non-blood Collection / Unknown 07/08/2024 1:27 PM EST 07/08/2024 1:51 PM EST Narrative [facility] - 07/08/2024 2:24 PM EST Assay cutoffs: Amphetamines ? 1000 ng/mL Barbiturates ?200 ng/mL Benzodiazepines ?? 200 ng/mL Cocaine ? 300 ng/mL Fentanyl ?1 ng/mL Opiates ? 300 ng/mL Oxycodone ? 100 ng/mL THC ?50 ng/mL Semi-quantitative assay for screening purposes only. Unconfirmed screening result should not be used for non-medical purposes. *ALTERNATE METHOD CONFIRMATION DONE UPON REQUEST ONLY* Gabi Abreu DO LAB URINE ORDERABLES Suze l Result [facility]) [facility] [address] [place] [address], * ECG 12 lead (07/08/2024 12:01 PM EST) Ventricular Rate ECG 81 BPM GEM[facility] Atrial Rate 81 BPM GEMUSE P-R Interval 134 ms GEMUSE QRS Duration 86 ms GEMUSE Q-T Interval 378 ms GEMUSE QTc 439 ms GEMUSE P Wave [place] 51 degrees GEMUSE R [place] 5 degrees GEMUSE T [place] 21 degrees GEMUSE ECG Interpretation Normal sinus rhythm Normal ECG When compared with ECG of 09-FEB-2018 23:56, Premature ventricular complexes are no longer Present Confirmed by Salomon NANCE YUFENG ([id number]) on 07/08/2024 4:00:55 PM GEMUSE 07/08/2024 12:0 1 PM EST 07/08/2024 4:00 PM EST us Dungkeisha Sterling Greenfieldny Brady DO ECG ORDERABLES Final Res ult GEMUSE * CBC auto differential (07/08/2024 11:29 AM EST) WBC 7.9 4.8 - 10.8 K/mcL LAB HEMETOLOGY METHOD 07/08/2024 11:43 AM [facility] RBC 4.60 3.80 - 4.80 M/mcL LAB HEMETOLOGY METHOD 07/08/2024 11:43 AM [facility] Hemoglobin 13.5 11.5 - 16.0 g/dL LAB HEMETOLOGY METHOD 07/08/2024 11:43 AM [facility] Hematocrit 40.8 35.0 - 47.0 % LAB HEMETOLOGY METHOD 07/08/2024 11:43 AM [facility] MCV 88.5 79.0 - 98.0 FL LAB HEMETOLOGY METHOD 07/08/2024 11:43 AM [facility] MCH 29.3 27.0 - 32.0 pcg LAB HEMETOLOGY METHOD 07/08/2024 11:43 AM [facility] MCHC 33.1 32.0 - 37.0 g/dL LAB HEMETOLOGY METHOD 07/08/2024 11:43 AM [facility] RDW 12.8 11.0 - 15.0 % LAB HEMETOLOGY METHOD 07/08/2024 11:43 AM [facility] Platelets 262 130 - 400 K/mcL LAB HEMETOLOGY METHOD 07/08/2024 11:43 AM [facility] MPV 10.5 7.0 - 11.0 FL LAB HEMETOLOGY METHOD 07/08/2024 11:43 AM [facility] NRBC 0.0 <1.0 % LAB HEMETOLOGY METHOD 07/08/2024 11:43 AM [facility] NRBC Absolute 0.00 <0.10 K/mcL LAB HEMETOLOGY METHOD 07/08/2024 11:43 AM [facility] Neutrophils Relative 63.1 % LAB HEMETOLOGY METHOD 07/08/2024 11:43 AM [facility] Lymphocytes Relative 27.8 % LAB HEMETOLOGY METHOD 07/08/2024 11:43 AM [facility] Monocytes Relative 6.2 % LAB HEMETOLOGY METHOD 07/08/2024 11:43 AM [facility] Eosinophils Relative 2.0 % LAB HEMETOLOGY METHOD 07/08/2024 11:43 AM [facility] Basophils Relative 0.5 % LAB HEMETOLOGY METHOD 07/08/2024 11:43 AM [facility] Immature Granulocytes Relative 0.4 % LAB HEMETOLOGY METHOD 07/08/2024 11:43 AM [facility] Neutrophils Absolute 4.96 1.50 - 7.00 K/mcL LAB HEMETOLOGY METHOD 07/08/2024 11:43 AM [facility] Lymphocytes Absolute 2.19 1.00 - 5.00 K/mcL LAB HEMETOLOGY METHOD 07/08/2024 11:43 AM [facility] Monocytes Absolute 0.49 0.20 - 1.00 K/mcL LAB HEMETOLOGY METHOD 07/08/2024 11:43 AM [facility] Eosinophils Absolute 0.16 0.00 - 0.50 K/[facility] LAB HEMETOLOGY METHOD 07/08/2024 11:43 AM EST [facility] Basophils Absolute 0.04 0.00 - [facility] 07/08/2024 11:43 AM EST [facility] Immature Granulocytes Absolute 0.03 0.00 - 0.03 [facility] LAB HEMETOLOGY METHOD 07/08/2024 11:43 AM EST [facility] Blood Venous blood specimen / Unknown Venipuncture / Unknown 07/08/2024 11:29 AM EST 07/08/2024 11:36 AM EST [facility] BLOOD ORDERABLES Suze l Result Performing Organization Address [facility]/ZIP Co de Phone Number [facility] [address] [place] [address], [place] [phone] * (ABNORMAL) Salicylate level (07/08/2024 11:29 AM EST) Salicylate Level <1.7(L) 2.0 - 29.0 mg/dL LAB CHEMISTRY METHOD 07/08/2024 12:23 PM [facility] Blood Venous blood specimen / Unknown Venipuncture / Unknown 07/08/2024 11:29 AM EST 07/08/2024 11:36 AM EST [facility] Arnold Abreu LAB BLOOD ORDERABLES Suze l Result [facility] [address] [place] [address], [place] [phone] * (ABNORMAL) Acetaminophen level (07/08/2024 11:29 AM EST) Acetaminophen Level <2.0(L) 10.0 - 30.0 mcg/mL LAB CHEMISTRY METHOD 07/08/2024 12:23 PM EST [facility] Blood Venous blood specimen / Unknown Venipuncture / Unknown 07/08/2024 11:29 AM EST 07/08/2024 11:36 AM EST Dung Sterling Abreu LAB BLOOD ORDERABLES Suze l Result Performing Organization Address [facility]/ZIP Co de Phone Number [facility] [address] [place] [address], [place] [phone] * Ethanol (07/08/2024 11:29 AM EST) Ethanol Level <3 0 - 10 mg/dL LAB CHEMISTRY METHOD 07/08/2024 12:24 PM [facility] Blood Venous blood specimen / Unknown Venipuncture / Unknown 07/08/2024 11:29 AM EST 07/08/2024 11:36 AM EST [facility] Sterling Barrett [facility] LAB BLOOD ORDERABLES Suze l Result Performing Organization Address City/[facility]/ZIP Co de Phone Number [facility] [address] [place] [address], [place] [phone] * (ABNORMAL) Comprehensive metabolic panel (07/08/2024 11:29 AM EST) Sodium 136 133 - 145 mmol/L LAB CHEMISTRY METHOD 07/08/2024 12:23 PM [facility] Potassium 4.4 3.5 - 5.5 mmol/L LAB CHEMISTRY METHOD 07/08/2024 12:23 PM [facility] Chloride 104 96 - 110 mmol/L LAB CHEMISTRY METHOD 07/08/2024 12:23 PM [facility] CO2 25 21 - 32 mmol/L LAB CHEMISTRY METHOD 07/08/2024 12:23 PM [facility] Anion Gap 7 3 - 11 LAB CHEMISTRY METHOD 07/08/2024 12:23 PM [facility] Glucose 334(H) 70 - 100 mg/dL LAB CHEMISTRY METHOD 07/08/2024 12:23 PM [facility] BUN 12 5 - 25 mg/dL LAB CHEMISTRY METHOD 07/08/2024 12:23 PM [facility] Creatinine 0.95 0.50 - 1.10 mg/dL LAB CHEMISTRY METHOD 07/08/2024 12:23 PM [facility] eGFR 67 >=60 mL/min/1. 73m2 LAB CHEMISTRY METHOD 07/08/2024 12:23 PM [facility] Comment:Calculation based on the??Chronic Kidney Disease Epidemiology Collaboration (CKD-EPI) equation refit??without adjustment for race. BUN/Creatinine Ratio 12.6 LAB CHEMISTRY METHOD 07/08/2024 12:23 PM [facility] Calcium 9.0 8.5 - 10.5 mg/dL LAB CHEMISTRY METHOD 07/08/2024 12:23 PM [facility] AST (SGOT) 14 10 - 42 unit/L LAB CHEMISTRY METHOD 07/08/2024 12:23 PM [facility] Comment:Results verified by repeat testing ALT (SGPT) 17 10 - 60 unit/L LAB CHEMISTRY METHOD 07/08/2024 12:23 PM [facility] Alkaline Phosphatase 187(H) 42 - 121 unit/L LAB CHEMISTRY METHOD 07/08/2024 12:23 PM [facility] Total Protein 6.2 6.0 - 8.0 g/dL LAB CHEMISTRY METHOD 07/08/2024 12:23 PM [facility] Albumin 3.0(L) 3.2 - 5.0 g/dL LAB CHEMISTRY METHOD 07/08/2024 12:23 PM [facility] Total Bilirubin 0.1 0.0 - 1.4 mg/dL LAB CHEMISTRY METHOD 07/08/2024 12:23 PM [facility] Blood Venous blood specimen / Unknown Venipuncture / Unknown 07/08/2024 11:29 AM EST 07/08/2024 11:36 AM EST Gabi Abreu DO LAB BLOOD ORDERABLES Suze l Result [facility] ([facility]) [facility] [address] [place] [address], * ECG-Annotated (07/08/2024) us Provider Onbase MD ECG ORDERABLES Final Result documented in this encounter Visit Diagnoses Diagnosis 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 Schizoaffective disorder, unspecified type (CMS/HCC) Severe recurrent major depression with psychotic features (CMS/HCC) Major depressive disorder, recurrent episode, severe, specified as with psychotic behavior documented in this encounter Administered Medications Inactive Administered Medications - up to 3 most recent administrations Medication Order MAR Action Action Date Dose Rate Site sodium chloride 0.9 % bolus 1,000 mL 1,000 mL, intravenous, at 2,000 mL/hr, Administer over 30 Minutes, Once, On Mon07/08/24 at 1522, For 1 dose New Bag 07/08/2024 3:34 PM EST 1,000 mL 2000 mL/hr sodium chloride 0.9 % bolus 500 mL 500 mL, intravenous, at 1,000 mL/hr, Administer over 30 Minutes, Once, On Mon07/08/24 at 1632, For 1 dose New Bag 07/08/2024 4:11 PM EST 500 mL 1000 mL/hr documented in this encounter Active and Recently Administered Medications Times are shown in EST. Scheduled Medication Order 07/07/2024 07/08/2024 07/09/2024 sodium chloride 0.9 % bolus 1,000 mL (COMPLETED) 1,000 mL, intravenous, at 2,000 mL/hr, Administer over 30 Minutes, Once, On Mon07/08/24 at 1522, For 1 dose 1534 (New Bag - Provider: Tammie Meek, RN)[id number] (Stopped - Provider: Cynthia Llanos RN) sodium chloride 0.9 % bolus 500 mL (COMPLETED) 500 mL, intravenous, at 1,000 mL/hr, Administer over 30 Minutes, Once, On 07/08/24 at 1632, For 1 dose 1611 (New Bag - Provider: Tammie Meek, RN)1712 (Stopped - Provider: Rosalia Meek RN) documented in this encounter Orders Lab Orders Without Results Count Last Ordered D ate First Ordered Date POCT GLUCOSE, BLOOD 07/08/2024 Consult Count Last Ordered Date First Orde red Date IP CONSULT TO WARP KNITTER 07/08/2024 documented in this encounter Care Teams Anchorman Relationship Specialty Start Date End Date Physician, Pcp Unknown PCP - General 06/24/24 documented as of this encounter
--- OUTSIDE RECORDS SUMMARY | 2024-07-31 15:12 | XMS_ITS | Encounter Summary ---
Author Organization [facility] Address [address] [place] [address] Care Team Providers Care Retail Loan Originator Assistant Name Role Phone Physician, Pcp Unknown Primary Care Provider Mai vailable Encounter Details Date Type Department Care Team (Late st Contact Info) Description 07/13/2024 Lab Requisition [facility] - Main Lab [address] [facility] [place] [phone] [address] Other mcc (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 Social History Tobacco Use Types Packs/Day Years [...] PM EST documented as of this encounter Plan of Treatment Not on file documented as of this encounter Procedures Procedure Name Priority Date/Time Associated Diagnosis Comments THYROID STIMULATING HORMONE WITH REFLEX TO FREE T4 AND FREE T3 Routine 07/13/2024 7:00 AM EST Other terminal gauger supervisor (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 LIPID PANEL WITH REFLEX TO DIRECT LDL Routine 07/13/2024 7:00 AM EST Other terminal gauger supervisor (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 CBC WITH AUTO DIFFERENTIAL Routine 07/13/2024 7:00 AM EST Other terminal gauger supervisor (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 CBC AND DIFFERENTIAL Routine 07/13/2024 7:00 AM EST Other mcc (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 HEMOGLOBIN A1C Routine 07/13/2024 7:00 AM EST Other mcc (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 COMPREHENSIVE METABOLIC PANEL Routine 07/13/2024 7:00 AM EST Other mcc (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 documented in this encounter Results * (ABNORMAL) CBC auto differential (07/13/2024 7:00 AM EST) WBC 6.9 4.8 - 10.8 K/mcL LAB HEMETOLOGY METHOD 07/13/2024 11:[address] [facility] RBC 4.80 3.80 - 4.80 M/mcL LAB HEMETOLOGY METHOD 07/13/2024 11:[address] [facility] Hemoglobin 14.1 11.5 - 16.0 g/dL LAB HEMETOLOGY METHOD 07/13/2024 11:[address] [facility] Hematocrit 43.8 35.0 - 47.0 % LAB HEMETOLOGY METHOD 07/13/2024 11:[address] [facility] MCV 90.7 79.0 - 98.0 FL LAB HEMETOLOGY METHOD 07/13/2024 11:[address] [facility] MCH 29.2 27.0 - 32.0 pcg LAB HEMETOLOGY METHOD 07/13/2024 11:[address] [facility] MCHC 32.2 32.0 - 37.0 g/dL LAB HEMETOLOGY METHOD 07/13/2024 11:[address] [facility] RDW 12.7 11.0 - 15.0 % LAB HEMETOLOGY METHOD 07/13/2024 11:[address] [facility] Platelets 265 130 - 400 K/mcL LAB HEMETOLOGY METHOD 07/13/2024 11:[address] [facility] MPV 11.2(H) 7.0 - 11.0 FL LAB HEMETOLOGY METHOD 07/13/2024 11:[address] [facility] NRBC 0.0 <1.0 % LAB HEMETOLOGY METHOD 07/13/2024 11:[address] [facility] NRBC Absolute 0.00 <0.10 K/mcL LAB HEMETOLOGY METHOD 07/13/2024 11:[address] [facility] Neutrophils Relative 58.4 % LAB HEMETOLOGY METHOD 07/13/2024 11:[address] [facility] Lymphocytes Relative 31.4 % LAB HEMETOLOGY METHOD 07/13/2024 11:[address] [facility] Monocytes Relative 6.3 % LAB HEMETOLOGY METHOD 07/13/2024 11:[address] [facility] Eosinophils Relative 3.2 % LAB HEMETOLOGY METHOD 07/13/2024 11:[address] [facility] Basophils Relative 0.4 % LAB HEMETOLOGY METHOD 07/13/2024 11:[address] [facility] Immature Granulocytes Relative 0.3 % LAB HEMETOLOGY METHOD 07/13/2024 11:[address] [facility] Neutrophils Absolute 4.05 1.50 - 7.00 K/mcL LAB HEMETOLOGY METHOD 07/13/2024 11:[address] [facility] Lymphocytes Absolute 2.18 1.00 - 5.00 K/mcL LAB HEMETOLOGY METHOD 07/13/2024 11:[address] [facility] Monocytes Absolute 0.44 0.20 - 1.00 K/mcL LAB HEMETOLOGY METHOD 07/13/2024 11:[address] [facility] Eosinophils Absolute 0.22 0.00 - 0.50 K/[facility] LAB HEMETOLOGY METHOD 07/13/2024 11:09 AM EST [facility] Basophils Absolute 0.03 0.00 - 0.20 K/[facility] LAB HEMETOLOGY METHOD 07/13/2024 11:09 AM EST [facility] Immature Granulocytes Absolute 0.02 0.00 - 0.03 K/[facility] LAB HEMETOLOGY METHOD 07/13/2024 11:09 AM EST [facility] Blood Venous blood specimen / Unknown Venipuncture / Unknown 07/13/2024 7:00 AM EST 07/13/2024 10:13 AM EST [facility] LAB BLOOD ORDERABLES Final Resul t Performing Organization Address City/[facility]/ZIP Co de Phone Number [facility] [address] [place] [address], [place] [phone] * (ABNORMAL) Hemoglobin A1c (07/13/2024 7:00 AM EST) Hemoglobin A1C 10.3(H) <6.5 % LAB CHEMISTRY METHOD 07/14/2024 9:18 AM EST [facility] Mean Bld Glu Estim. 249 mg/dL LAB CHEMISTRY METHOD 07/14/2024 9:18 AM EST [facility] Blood Venous blood specimen / Unknown Venipuncture / Unknown 07/13/2024 7:00 AM EST 07/13/2024 10:13 AM EST [facility] LAB BLOOD ORDERABLES Final Resul t [facility] [address] [place] [address], [place] [phone] * Thyroid stimulating hormone with reflex to free t4 and free t3 (07/13/2024 7:00 AM EST) TSH 1.49 0.40 - 4.00 mcIU/mL LAB CHEMISTRY METHOD 07/13/2024 11:49 AM EST [facility] Blood Venous blood specimen / Unknown Venipuncture / Unknown 07/13/2024 7:00 AM EST 07/13/2024 10:13 AM EST [facility] LAB BLOOD ORDERABLES Final Resul t [facility] [address] [place] [address], [place] [phone] * (ABNORMAL) Lipid panel with reflex to direct LDL (07/13/2024 7:00 AM EST) Cholesterol 252(H) 0 - 200 mg/dL LAB CHEMISTRY METHOD 07/13/2024 11:[address] [facility] Triglycerides 208(H) 0 - 150 mg/dL LAB CHEMISTRY METHOD 07/13/2024 11:[address] [facility] HDL 45 >=40 mg/dL LAB CHEMISTRY METHOD 07/13/2024 11:[address] [facility] LDL Calculated 165(H) 0 - 100 mg/dL LAB CHEMISTRY METHOD 07/13/2024 11:[address] [facility] VLDL Cholesterol Damian 41.6 mg/dL LAB CHEMISTRY METHOD 07/13/2024 11:[address] [facility] Non HDL Chol. (LDL+VLDL) 207(H) <145 mg/dL LAB CHEMISTRY METHOD 07/13/2024 11:[address] [facility] Chol/HDL Ratio 5.6(H) 0.0 - 4.4 LAB CHEMISTRY METHOD 07/13/2024 11:[address] [facility] Blood Venous blood specimen / Unknown Venipuncture / Unknown 07/13/2024 7:00 AM EST 07/13/2024 10:13 AM EST [facility] Final Resul t [facility] [address] [place] [address], [place] [phone] * (ABNORMAL) Comprehensive metabolic panel (07/13/2024 7:00 AM EST) Sodium 137 133 - 145 mmol/L LAB CHEMISTRY METHOD 07/13/2024 11:[address] [facility] Potassium 4.7 3.5 - 5.5 mmol/L LAB CHEMISTRY METHOD 07/13/2024 11:[address] [facility] Chloride 103 96 - 110 mmol/L LAB CHEMISTRY METHOD 07/13/2024 11:[address] [facility] CO2 28 21 - 32 mmol/L LAB CHEMISTRY METHOD 07/13/2024 11:[address] [facility] Anion Gap 6 3 - 11 LAB CHEMISTRY METHOD 07/13/2024 11:[address] [facility] Glucose 274(H) 70 - 100 mg/dL LAB CHEMISTRY METHOD 07/13/2024 11:[address] [facility] BUN 17 5 - 25 mg/dL LAB CHEMISTRY METHOD 07/13/2024 11:[address] [facility] Creatinine 0.83 0.50 - 1.10 mg/dL LAB CHEMISTRY METHOD 07/13/2024 11:[address] [facility] eGFR 79 >=60 mL/min/1. 73m2 LAB CHEMISTRY METHOD 07/13/2024 11:[address] [facility] Comment:Calculation based on the??Chronic Kidney Disease Epidemiology Collaboration (CKD-EPI) equation refit??without adjustment for race. BUN/Creatinine Ratio 20.5 LAB CHEMISTRY METHOD 07/13/2024 11:[address] [facility] Calcium 9.0 8.5 - 10.5 mg/dL LAB CHEMISTRY METHOD 07/13/2024 11:[address] [facility] AST (SGOT) 17 10 - 42 unit/L LAB CHEMISTRY METHOD 07/13/2024 11:[address] [facility] ALT (SGPT) 32 10 - 60 unit/L LAB CHEMISTRY METHOD 07/13/2024 11:[address] [facility] Alkaline Phosphatase 151(H) 42 - 121 unit/L LAB CHEMISTRY METHOD 07/13/2024 11:[address] [facility] Total Protein 6.6 6.0 - 8.0 g/dL LAB CHEMISTRY METHOD 07/13/2024 11:[address] [facility] Albumin 3.3 3.2 - 5.0 g/dL LAB CHEMISTRY METHOD 07/13/2024 11:[address] [facility] Total Bilirubin 0.2 0.0 - 1.4 mg/dL LAB CHEMISTRY METHOD 07/13/2024 11:[address] [facility] Blood Venous blood specimen / Unknown Venipuncture / Unknown 07/13/2024 7:00 AM EST 07/13/2024 10:13 AM EST [facility] LAB BLOOD ORDERABLES Final Resul t [facility] [address] [place] [address], documented in this encounter Visit Diagnoses Diagnosis Other mcc (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 documented in this encounter Additional Health Concerns Infection Onset Date Last Indicated Resolved Time COVID-19 07/09/2024 07/09/2024 documented as of this encounter Care Teams Retail Loan Originator Assistant Relationship Specialty Start Date End Date Physician, Pcp Unknown PCP - General 06/24/24 documented as of this encounter
--- OUTSIDE RECORDS SUMMARY | 2024-07-31 15:12 | XMS_ITS | Encounter Summary ---
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 mg/dL LAB CHEMISTRY METHOD 07/30/2024 6:[address] [facility] AST (SGOT) 4(L) 10 - 42 unit/L LAB CHEMISTRY METHOD 07/30/2024 6:[address] [facility] ALT (SGPT) 12 10 - 60 unit/L LAB CHEMISTRY METHOD 07/30/2024 6:[address] [facility] Alkaline Phosphatase 160(H) 42 - 121 unit/L LAB CHEMISTRY METHOD 07/30/2024 6:[address] [facility] Total Protein 6.2 6.0 - 8.0 g/dL LAB CHEMISTRY METHOD 07/30/2024 6:[address] [facility] Albumin 3.1(L) 3.2 - 5.0 g/dL LAB CHEMISTRY METHOD 07/30/2024 6:[address] [facility] Total Bilirubin 0.2 0.0 - 1.4 mg/dL LAB CHEMISTRY METHOD 07/30/2024 6:[address] [facility] Blood Venous blood specimen / Unknown Venipuncture / Unknown 07/30/2024 5:26 PM EST 07/30/2024 5:39 PM EST us Quintin Rodriguez MD LAB BLOOD ORDERABLES Final Resu lt [facility] [address] [place] [address], documented in this encounter Visit Diagnoses Diagnosis Schizoaffective disorder, unspecified type (CMS/HCC)- Primary Major depressive disorder, recurrent episode, severe, with psychotic behavior (CMS/HCC) documented in this encounter Administered Medications Active Administered Medications - up to 3 most recent administrations Medication Order MAR Action Action Date Dose Rate Site acetaminophen (TYLENOL) tablet 1,000 mg 1,000 mg, oral, 3 times daily, First dose on Mon07/30/24 at 2100 Given 07/31/2024 1:13 PM EST 1,000 mg Given 07/31/2024 9:38 AM EST 1,000 mg Given 07/30/2024 9:56 PM EST 1,000 mg aluminum-magnesium hydroxide-simethicone (MAALOX) 200-200-20 mg/5 mL suspension 30 mL 30 mL, oral, Every 8 hours PRN, heartburn, indigestion, Starting on Mon07/30/24 at 1834 melatonin tablet 6 mg 6 mg, oral, Nightly PRN, sleep, Starting on Mon07/30/24 at 1834 metFORMIN (GLUCOPHAGE) tablet 500 mg 500 mg, oral, Daily, First dose on Mon07/30/24 at 1835 Given 07/31/2024 9:38 AM EST 500 mg Given 07/30/2024 6:56 PM EST 500 mg OLANZapine (ZyPREXA) tablet 10 mg 10 mg, oral, Nightly, First dose on Mon07/30/24 at 2100 Given 07/30/2024 9:56 PM EST 10 mg ondansetron ODT (ZOFRAN-ODT) disintegrating tablet 4 mg 4 mg, oral, Every 8 hours PRN, nausea, vomiting, Starting on Mon07/30/24 at 1834 documented in this encounter Historical Medications * This list may reflect changes made after this encounter. cloNIDine (CATAPRES) 0.1 mg tablet 1 tablet (0.1 mg total) 2 (two) times a day if needed (2nd line anxiety). 07/17/2024 metFORMIN (GLUCOPHAGE) 500 mg tablet Take 1 tablet (500 mg total) by mouth 1 (one) time each day. 07/17/2024 hydrOXYzine pamoate (VISTARIL) 50 mg capsule 1 capsule (50 mg total) every 4 (four) hours if needed for anxiety. 07/17/2024 OLANZapine (ZyPREXA ZYDIS) 5 mg disintegrating tablet 1 tablet (5 mg total) if needed (daily). 07/17/2024 OLANZapine (ZyPREXA) 10 mg tablet Take 1 tablet (10 mg total) by mouth at bedtime. 07/17/2024 added in this encounter Active and Recently Administered Medications Times are shown in EST. Scheduled Medication Order 07/29/2024 07/30/2024 07/31/2024 acetaminophen (TYLENOL) tablet 1,000 mg 1,000 mg, oral, 3 times daily, First dose on Mon07/30/24 at 2100 2156 (Given - Provider: Smiley Rossi RN) 0938 (Given - Provider: Cecilio Lombardi RN)1313 (Given - Provider: Cecilio Lombardi RN)2100 (Due) metFORMIN (GLUCOPHAGE) tablet 500 mg 500 mg, oral, Daily, First dose on Mon07/30/24 at 1835 1856 (Given - Provider: Sulma Anderson RN) 0938 (Given - Provider: Cecilio Lombardi RN) OLANZapine (ZyPREXA) tablet 10 mg 10 mg, oral, Nightly, First dose on Mon07/30/24 at 2100 2156 (Given - Provider: Smiley Rossi RN) 2100 (Due) PRN Medication Order 07/29/2024 07/30/2024 07/31/2024 aluminum-magnesium hydroxide-simethicone (MAALOX) 200-200-20 mg/5 mL suspension 30 mL 30 mL, oral, Every 8 hours PRN, heartburn, indigestion, Starting on Mon07/30/24 at 1834 cloNIDine (CATAPRES) tablet 0.1 mg 0.1 mg, oral, 2 times daily PRN, 2nd line anxiety, Starting on Mon07/30/24 at 1834 hydrOXYzine pamoate (VISTARIL) capsule 50 mg 50 mg, oral, Every 4 hours PRN, anxiety, Starting on Mon07/30/24 at 1834 melatonin tablet 6 mg 6 mg, oral, Nightly PRN, sleep, Starting on Mon07/30/24 at 1834 OLANZapine (ZyPREXA ZYDIS) disintegrating tablet 5 mg 5 mg, oral, As needed, daily, Starting on Mon07/30/24 at 1834, Tablets should NOT be swallowed whole, chewed, broken, or crushed. Place tablet in mouth, allow to dissolve, and then swallow saliva with or without water. ondansetron ODT (ZOFRAN-ODT) disintegrating tablet 4 mg 4 mg, oral, Every 8 hours PRN, nausea, vomiting, Starting on Mon07/30/24 at 1834 documented in this encounter Orders Medications Ordered That Matthew ht Not Have Been Administered Count Last Ordered Date First Ordered Date aluminum-magnesium hydroxide -simethicone (MAALOX) 200-200-20 mg/5 mL suspension 30 mL 1 07/30/2024 cloNIDine (CATAPRES) tablet 0.1 mg 1 2024 hydrOXYzine pamoate (VISTARI L) capsule 50 mg 1 07/30/2024 melatonin tablet 6 mg 1 07/30/2024 OLANZapine (ZyPREXA ZYDIS) d isintegrating tablet 5 mg 1 07/30/2024 ondansetron ODT (ZOFRAN-ODT) disintegrating tablet 4 mg 1 07/30/2024 Diet Count Last Ordered Date First Orde red Date ADULT DIET 1 07/30/2024 Consult Count Last Ordered Date First Orde red Date IP CONSULT TO STATION USHER 1 07/30/2024 Precaution Count Last Ordered Date First Orde red Date SUICIDE PRECAUTIONS 1 07/30/2024 Privilege Level Count Last Ordered Date First O rdered Date 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
--- NOTE | 2024-07-31 19:07 | PC.ADMIT ---
Addendum entered by Dalila Chavez RN 07/31/24 19:08: Allg of latex and cephalexin Original Note: Dana is 63 y/o female what was admitted to at 1355 from [facility] on CV and then later signed a 3 day for treatment of psychosis.? Pt is currently undomiciled.? Pt came into [facility] ED with a complaint of unmanaged AVH that was not controlled by medications.? Pt was alert and oriented to self, date and time. Pt was calm and cooperative with admission.? Mood is variable Pt reported AVH. Pt reported seeing ?monsters?.? Thought Process was linear. Pt denied SI or HI at this time.? Pt reported a good appetite.? Pt reported difficulty falling asleep and staying asleep.? Pt had poor focus.? Substance Issues - Pt denied using any substances but tox Screen positive for cocaine.? Medical Issues - Arthritis, Diabetes Mellitus, high cholesterol, HTN, Neuropathy Skin check was complete, bilat dry cracked feet noted.? Pt was placed on 15 min checks for safety. Medication non compliance last 2 months.
[2024-07-31] MEDS: hydrOXYzine HCL 25 MG TABLET PO (19:57)
[2024-07-31] MEDS: traZODone HCL 50 MG TABLET PO (19:57)
[2024-07-31 19:59] VITALS: BP 161/72; PULSE 82; RESP 18; TEMP 36.4; O2SAT 99
[2024-07-31 20:23] LABS: Glucose, Whole Blood 289 mg/dL (60-115)
[2024-08-01 07:43] VITALS: BP 149/89; PULSE 84; RESP 16; TEMP 36.4; O2SAT 100
[2024-08-01 07:45] LABS: Glucose, Whole Blood 301 mg/dL (60-115)
--- NOTE | 2024-08-01 10:17 | P.HPPS_ITS ---
[facility] Date of Service: 08/01/24 Chief Complaint: f25.0,f50.3,f3.3 Sources of Information: patient interviewed, chart reviewed and crisis/core team assessment reviewed HPI Subjective Notes: 3 Day Narrative: Patient is a 63-year-old female with history of schizoaffective disorder and cocaine use disorder who presented to ED due to auditory hallucinations telling her to use drugs and harm herself secondary to stating that her medications are not effective. Per crisis report, patient reports she does not want to harm herself or to use substances. history of multiple inpatient psychiatric hospitalizations. depressed mood, decreased sleep. Patient reports using crack earlier in the day. Utox positive for cocaine. History of multiple detox and rehab admissions. Denies SI/HI/VH. Does not have outpatient psychiatric providers. During admission assessment, patient presents alert oriented x3. Calm and cooperative. Patient reports she came to the hospital due to hearing things and seeing things . Patient stated, they were saying bad things to me and telling me to do drugs for 3 days. I was seeing monsters . Patient reports smoking crack to make the voices go away . She denies feeling anxious or depressed; patient stated, she just wants medications to not have hallucinations . Denies history of SA/SIB. She reports smoking crack once or twice a month . States she does not have outpatient psychiatric providers but would like referrals. Reports she has been getting her psychiatric medications through her PCP. Patient denies SI/HI/VH/AH is time. Signed 3 day notice that is up on 08/06/24. Past Psychiatric History: hx of multiple inpatient psychiatric hospitalizations. denies hx of SA/SIB. does not have outpatient psychiatric providers. Medical Evaluation Reviewed: Yes [facility] Family History: Denies. Social History: Homeless. Single. No children. Highest level of education completed 9th grade. Substance History: History of crack use. History of detox admissions. U tox positive for cocaine. Trauma History: Yes Diagnostics Vital Signs (24Hr): Vital Signs - 24 hr 07/31/24 19:59 08/01/24 07:43 Temperature 97.5 F 97.6 F Pulse Rate 82 84 Respiratory Rate 18 16 Blood Pressure 161/72 H 149/89 H Pulse Oximetry 99 100 Oxygen Delivery Method Room Air Room Air Labs Labs: Laboratory Results - last 48 hr 07/31/24 08/01/24 20:04 07:33 POC Glucose 289 H 301 H Meds/Allergies Meds Home Medications ?Medication ?Instructions ?Recorded ?Confirmed ?Type acetaminophen 650 mg 650 mg PO Q8H 07/31/24 07/31/24 History tablet,extended release clonidine HCl 0.1 mg tablet 0.1 mg PO BID PRN anxiety 07/31/24 07/31/24 History diclofenac sodium 3 % topical gel topical BID 07/31/24 History doxepin 25 mg capsule 25 mg PO BEDTIME 07/31/24 07/31/24 History hydroxyzine pamoate 50 mg capsule 50 mg PO Q4H PRN anxiety 07/31/24 07/31/24 History insulin glargine 100 unit/mL (3 unit subcut 07/31/24 History mL) subcutaneous pen (Lantus Solostar U-100 Insulin) ipratropium 20 mcg-albuterol 100 inhalation QID 07/31/24 History mcg/actuation mist for inhalation (Combivent Respimat) lisinopril 5 mg tablet mg DAILY 07/31/24 History lorazepam 1 mg tablet 1 mg PO DAILY PRN Anxiety 07/31/24 07/31/24 History metformin 500 mg tablet 500 mg PO DAILY 07/31/24 07/31/24 History olanzapine 10 mg tablet 10 mg PO BEDTIME 07/31/24 07/31/24 History olanzapine 5 mg disintegrating 5 mg PO DAILY PRN Agitation 07/31/24 07/31/24 History tablet risperidone 0.5 mg tablet 0.5 mg PO BEDTIME 07/31/24 07/31/24 History Allergies Allergies Allergy/AdvReac Type Severity Reaction Status Date / Time cephalexin [From Keflex] Allergy Unknown Verified 07/31/24 14:04 latex Allergy Unknown Verified 07/31/24 14:04 Mental Status Exam Mental Status Exam Narrative: Pt is alert and oriented; behavior is cooperative and calm; dressed in casual attire; mood is described as tired ; eye contact appropriate; Speech is normal rate, volume and not pressured; thought process is organized; Thought content is on tx; denies SI/HI/VH/AH. Assessment & Plan Assessment & Plan (1) Schizoaffective disorder: Status: Acute Code(s): F25.9 - Schizoaffective disorder, unspecified (2) Cocaine use disorder: Status: Acute Code(s): F14.10 - Cocaine abuse, uncomplicated (3) Homelessness: Status: Acute Code(s): Z59.00 - Homelessness unspecified Plan Patient is a 63-year-old female with history of schizoaffective disorder and cocaine use disorder who presented to ED due to auditory hallucinations telling her to use drugs and harm herself secondary to stating that her medications are not effective. Plan: 3 day notice 15 minute safety checks Continue home medications Referral to outpatient psychiatric providers Encourage groups Discharge planning Patient educated on: diagnosis and medication risk/benefits Reason for continued inpatient stay Substantial Risk for: med/psych decompensation Statement Statement: I have reviewed the history and physical and performed a pertinent examination on my patient. No changes have occurred unless specified. If the History and Physical was not performed prior to admission, the Hospitalist's service will be consulted for completing the admission physical. Time Spent With Patient Time: Total time managing care of this patient today _60___ minutes.
[2024-08-01 12:09] LABS: Glucose, Whole Blood 313 mg/dL (60-115)
--- NOTE | 2024-08-01 13:48 | HO.PM.IMCN ---
History of Present Illness Data of Consult Service Date: 08/01/24 Primary Care Provider: Unknown Physician HPI Reason for consult: Admission H&P Pt is a 63-year-old female with a PMH significant for HTN, insulin-dependent type 2 diabetes, and mood disorder who is admitted to [facility] for command auditory and visual hallucinations that are telling her to do drugs which pt reports she does not want to do. Hospitalist consult for admission H&P. Pt seen and evaluated in her room where she is resting comfortably in bed. Pt reports has not followed with a PCP in an unknown period of time. She is unable to state prescribes her medications. Pt currently denies any acute medical complaints. No chest pain/pressure, palpitations. Denies fever, chills, nausea, vomiting, abdominal pain. Denies headache acute vision changes. Review of Systems Review of Systems: Pt has no acute medical complaints at this time [facility] Medical History (Updated 08/01/24 @ 16:33 by PAUL Oseguera) Insulin dependent type 2 diabetes mellitus HTN (hypertension) Social History Household Members: None Housing: Homeless Do you presently have visiting nurse or other home services: No Patient Tobacco Use Status: Current everyday Tobacco user Cigarette Packs Per Day: 0.5 Cigarettes Per Day: 10.0 Smoked in Last 30 Days: Yes Patient Interested in Nicotine Replacement: Yes Patient Given Instructions on How to Stop Smoking: Yes Date Education Initiated: 07/31/24 Second Hand Smoke Exposure: No Use of substances other than those prescribed or required for medical reasons: Yes Substance Use Type: Crack/Cocaine Last Used Substance: Unknown Currently Displaying Signs/Symptoms of Drug Intoxication Withdrawal: No Any prior treatment program specific to substance use: No Have you been hit, kicked, punched, or otherwise hurt by someone within the past year? If so, by whom?: No Do you feel safe in your current relationship?: No Current Relationship Is there a partner from a previous relationship who is making you feel unsafe now?: No Are you made to feel afraid or neglected: No Advance Directives: No Advance Directives Information Provided: Yes Do you have thoughts of harming others: None Do you have a plan to hurt others: No Plan Recently lost weight without trying: No Eating poorly because of decreased appetite: No Nutrition Risks: No Nutritional Risk Patient : No : No Poor oral hygiene: Yes service: No Sexual orientation: Straight/Heterosexual Meds Allergies Allergy/AdvReac Type Severity Reaction Status Date / Time cephalexin [From Keflex] Allergy Unknown Verified 07/31/24 14:04 latex Allergy Unknown Verified 07/31/24 14:04 Active Medications: Current Medications Acetaminophen (Acetaminophen 325 Mg Tablet) 650 mg PO Q6H PRN PRN Reason: Headache/Pain, Scale 1-10 Al Hydroxide/Mg Hydroxide (Magnesium Hydrox/Alum Hydrox 30 Ml Oral.Susp) 30 ml PO Q6H PRN PRN Reason: Heartburn/Nausea Hydroxyzine HCl (Hydroxyzine Hcl 25 Mg Tablet) 25 mg PO Q6H PRN PRN Reason: mild anxiety Last Admin: 07/31/24 19:57 Dose: 25 mg Magnesium Hydroxide (Milk Of Magnesia 30 Ml Oral.Susp) 30 ml PO DAILY PRN PRN Reason: Constipation Nicotine Polacrilex (Nicotine Polacrilex 2 Mg Gum) 4 mg BUCCAL Q2H PRN PRN Reason: Nicotine Cravings Trazodone HCl (Trazodone Hcl 50 Mg Tablet) 50 mg PO BEDTIME MRX1 PRN PRN Reason: Insomnia Last Admin: 07/31/24 19:57 Dose: 50 mg Home Medications ?Medication ?Instructions ?Recorded ?Confirmed ?Last Taken ?Type acetaminophen 650 mg 650 mg PO Q8H 07/31/24 07/31/24 Unknown History tablet,extended release clonidine HCl 0.1 mg tablet 0.1 mg PO BID PRN anxiety 07/31/24 07/31/24 Unknown History diclofenac sodium 3 % topical gel topical BID 07/31/24 Unknown History doxepin 25 mg capsule 25 mg PO BEDTIME 07/31/24 07/31/24 Unknown History hydroxyzine pamoate 50 mg capsule 50 mg PO Q4H PRN anxiety 07/31/24 07/31/24 Unknown History insulin glargine 100 unit/mL (3 unit subcut 07/31/24 Unknown History mL) subcutaneous pen (Lantus Solostar U-100 Insulin) ipratropium 20 mcg-albuterol 100 inhalation QID 07/31/24 Unknown History mcg/actuation mist for inhalation (Combivent Respimat) lisinopril 5 mg tablet mg DAILY 07/31/24 Unknown History lorazepam 1 mg tablet 1 mg PO DAILY PRN Anxiety 07/31/24 07/31/24 Unknown History metformin 500 mg tablet 500 mg PO DAILY 07/31/24 07/31/24 Unknown History olanzapine 10 mg tablet 10 mg PO BEDTIME 07/31/24 07/31/24 Unknown History olanzapine 5 mg disintegrating 5 mg PO DAILY PRN Agitation 07/31/24 07/31/24 Unknown History tablet risperidone 0.5 mg tablet 0.5 mg PO BEDTIME 07/31/24 07/31/24 Unknown History Physical Exam Vital Signs and Narrative: Vital Signs: Last Vital Signs Temp 97.6 F 08/01/24 07:43 Pulse 84 08/01/24 07:43 Resp 16 08/01/24 07:43 BP 149/89 H 08/01/24 07:43 Pulse Ox 100 08/01/24 07:43 O2 Del Method Room Air 08/01/24 07:43 General: AOx3, no acute distress Resp: CTA bilaterally CVS: S1, S2, RRR GI: +BS, NT, no distention Skin: Warm, dry Neuro: Cranial nerves II-XII grossly intact bilaterally. Motor grossly intact bilaterally Extremities: No edema Results Labs Labs: Laboratory Results - last 24 hr 07/31/24 08/01/24 08/01/24 20:04 07:33 11:55 POC Glucose 289 H 301 H 313 H Assessment and Plan (1) Medical clearance for psychiatric admission: Status: Acute Plan Pt is a 63-year-old female with a PMH significant for HTN, insulin-dependent type 2 diabetes, and mood disorder who is admitted to [facility] for command auditory and visual hallucinations that are telling her to do drugs which pt reports she does not want to do. Hospitalist consult for admission H&P. Mood disorder Plan as per Psychiatry Hypertension Unclear if currently on any antihypertensives Previously on lisinopril BP has been elevated as high as 161/72 Continue clonidine Will continue to monitor BP, if remains elevated will start lisinopril 10mg daily Insulin-dependent type [address] on sliding scale insulin Will start on Lantus 10 units at bedtime Continue metformin Encouraged diabetic diet and diabetic snacking Thank you for allowing us to participate in the care of this patient. Signing off at this time. Please re-consult if any acute complaints or issues arise.
[2024-08-01] MEDS: metFORMIN HCl 500 MG TABLET PO (16:05)
[2024-08-01 16:49] LABS: Glucose, Whole Blood 388 mg/dL (60-115)
[2024-08-01] MEDS: Insulin Lispro 100 UNIT/ML 3 ML VIAL SUBCUT ×2 (17:02→21:42)
--- NOTE | 2024-08-01 18:22 | PC.NURSE ---
Desmond Rizo notified of patient POC of 388. Insulin administered per sliding scale. No additional coverage at this time.
[2024-08-01 21:12] LABS: Glucose, Whole Blood 275 mg/dL (60-115)
[2024-08-01] MEDS: hydrOXYzine HCL 25 MG TABLET PO (21:41)
[2024-08-01] MEDS: traZODone HCL 50 MG TABLET PO (21:41)
[2024-08-01] MEDS: OLANZapine 10 MG TABLET PO (21:41)
[2024-08-01] MEDS: Insulin Glargine,Hum.rec.anlog 100 UNIT/ML 10 ML VIAL 10 UNIT SUBCUT (21:41)
[2024-08-01 21:45] VITALS: BP 136/68; PULSE 88; RESP 16; TEMP 36.6; O2SAT 98
[2024-08-02 07:30] VITALS: BP 137/81; PULSE 83; RESP 14; TEMP 36.6; O2SAT 100
[2024-08-02 07:40] LABS: Glucose, Whole Blood 309 mg/dL (60-115)
[2024-08-02] MEDS: Insulin Lispro 100 UNIT/ML 3 ML VIAL SUBCUT ×4 (08:23→22:34)
[2024-08-02] MEDS: metFORMIN HCl 500 MG TABLET PO (08:24)
--- NOTE | 2024-08-02 09:21 | P.PNPSI_ITS ---
Subjective Subjective Date of Service: 08/02/24 Reason For Visit: f25.0,f50.3,f3.3 Subjective Notes: 3 Day Interim History: Active on unit. Keeping to self. Medication compliant. Patient reports feeling good today; states that she slept well last night. Patient reports she is no longer having auditory hallucinations. Encouraged to attend groups. Denies SI/HI/VH/AH. 3 day is up on 07/06/24. Patient reports she plans on going to a half-way in [place] after discharge. Medication Compliance: Yes Side effects from medications: No Mental Status Exam Mental Status Exam Narrative: Pt is alert and oriented; behavior is cooperative and calm; dressed in casual attire; mood is described as good ; eye contact appropriate; Speech is normal rate, volume and not pressured; thought process is organized; Thought content is on tx; denies SI/HI/VH/AH. Diagnostics Vital Signs (24Hr): Vital Signs - 24 hr 08/01/24 21:45 08/02/24 07:30 Temperature 97.8 F 97.9 F Pulse Rate 88 83 Respiratory Rate 16 14 Blood Pressure 136/68 137/81 Pulse Oximetry 98 100 Oxygen Delivery Method Room Air Room Air Labs Labs: Laboratory Results - last 48 hr 07/31/24 08/01/24 08/01/24 20:04 07:33 11:55 POC Glucose 289 H 301 H 313 H 08/01/24 08/01/24 08/02/24 16:44 21:05 07:19 POC Glucose 388 H* 275 H 309 H Medications Medications Current Medications Acetaminophen (Acetaminophen 325 Mg Tablet) 650 mg PO Q6H PRN PRN Reason: Headache/Pain, Scale 1-10 Al Hydroxide/Mg Hydroxide (Magnesium Hydrox/Alum Hydrox 30 Ml Oral.Susp) 30 ml PO Q6H PRN PRN Reason: Heartburn/Nausea Benztropine Mesylate (Benztropine Mesylate 0.5 Mg Tablet) 0.5 mg PO BID PRN PRN Reason: Extrapyramidal Effects Dextrose (Dextrose 50 % 25 Gm/50 Ml Syringe) 25 gm IVPUSH Q15M PRN; Protocol PRN Reason: per Hypoglycemia Standing Ord. Glucose (Glucose Gel 15 Gm Gel..Gram.) 15 gm PO Q15M PRN; Protocol PRN Reason: per Hypoglycemia Standing Ord. Hydroxyzine HCl (Hydroxyzine Hcl 25 Mg Tablet) 25 mg PO Q6H PRN PRN Reason: mild anxiety Last Admin: 08/01/24 21:41 Dose: 25 mg Insulin Glargine (Insulin Glargine,Hum.Rec.Anlog 100 Unit/Ml 10 Ml Vial) 10 unit SUBCUT BEDTIME [facility] Last Admin: 08/01/24 21:41 Dose: 10 unit Insulin Human Lispro (Insulin Lispro 100 Unit/Ml 3 Ml Vial) 0 unit SUBCUT QIDACHS [facility]; Protocol Last Admin: 08/02/24 08:23 Dose: 8 unit Magnesium Hydroxide (Milk Of Magnesia 30 Ml Oral.Susp) 30 ml PO DAILY PRN PRN Reason: Constipation Metformin HCl (Metformin Hcl 500 Mg Tablet) 500 mg PO DAILY [facility] Last Admin: 08/02/24 08:24 Dose: 500 mg Nicotine Polacrilex (Nicotine Polacrilex 2 Mg Gum) 4 mg BUCCAL Q2H PRN PRN Reason: Nicotine Cravings Olanzapine (Olanzapine 10 Mg Tablet) 10 mg PO BEDTIME [facility] Last Admin: 08/01/24 21:41 Dose: 10 mg Olanzapine (Olanzapine 5 Mg Tablet) 5 mg PO Q4H PRN PRN Reason: agitation/psychosis Trazodone HCl (Trazodone Hcl 50 Mg Tablet) 50 mg PO BEDTIME MRX1 PRN PRN Reason: Insomnia Last Admin: 08/01/24 21:41 Dose: 50 mg Allergies Allergies Allergy/AdvReac Type Severity Reaction Status Date / Time cephalexin [From Keflex] Allergy Unknown Verified 07/31/24 14:04 latex Allergy Unknown Verified 07/31/24 14:04 Assessment & Plan Assessment & Plan (1) Schizoaffective disorder: Status: Acute Code(s): F25.9 - Schizoaffective disorder, unspecified (2) Cocaine use disorder: Status: Acute Code(s): F14.10 - Cocaine abuse, uncomplicated Plan Patient is a 63-year-old female with history of schizoaffective disorder and cocaine use disorder who presented to ED due to auditory hallucinations telling her to use drugs and harm herself secondary to stating that her medications are not effective. Plan: 3 day notice 15 minute safety checks Continue home medications Referral to outpatient psychiatric providers Encourage groups Discharge planning 08/02: Active on unit. Keeping to self. Medication compliant. Patient reports feeling good today; states that she slept well last night. Patient reports she is no longer having auditory hallucinations. Encouraged to attend groups. Denies SI/HI/VH/AH. 3 day is up on 08/06/24. Patient reports she plans on going to a half-way in [place] after discharge. Continue current treatment plan. Patient educated on: diagnosis, medication risk/benefits and therapeutic strategies Reason for continued inpatient stay Substantial Risk for: med/psych decompensation Time Spent With Patient Time: Total time managing care of this patient today _20___ minutes.
[2024-08-02 11:22] LABS: Glucose, Whole Blood 350 mg/dL (60-115)
[2024-08-02 16:44] LABS: Glucose, Whole Blood 285 mg/dL (60-115)
[2024-08-02 20:00] VITALS: BP 120/71; PULSE 91; RESP 16; TEMP 36.6; O2SAT 97
[2024-08-02 20:40] LABS: Glucose, Whole Blood 309 mg/dL (60-115)
[2024-08-02] MEDS: OLANZapine 10 MG TABLET PO (22:33)
[2024-08-02] MEDS: Insulin Glargine,Hum.rec.anlog 100 UNIT/ML 10 ML VIAL 10 UNIT SUBCUT (22:33)
[2024-08-03 08:00] VITALS: BP 140/77; PULSE 94; RESP 16; TEMP 36.1; O2SAT 98
[2024-08-03 08:07] LABS: Glucose, Whole Blood 412 mg/dL (60-115)
[2024-08-03] MEDS: Insulin Lispro 100 UNIT/ML 3 ML VIAL SUBCUT ×4 (08:16→21:39)
[2024-08-03] MEDS: metFORMIN HCl 500 MG TABLET PO (08:18)
--- NOTE | 2024-08-03 09:49 | HO.PSYCHPN ---
Subjective Subjective Date of Service: 08/03/24 Reason For Visit: f25.0,f50.3,f3.3 Subjective Notes: Conditional Voluntary and 3 Day Interim History: Patient was seen and discussed in rounds today. Records and plans were reviewed. She continues to be guarded and withdrawn. Isolative. No SI. Her 3 day notice expires on 08/06. No complaints or side effects. No changes were made today Review of Systems Review of Systems Yes all other systems are reviewed and are negative Mental Status Exam Mental Status Exam Narrative: In today's visit she is alert, oriented and pleasant. Normal speech. Moderate eye contact. Affect is contained. No signs of psychosis. No AVH. No SI. Cognitively is grossly intact. Judgment is intact. Able to move all limbs. No gait abnormalities Diagnostics Vital Signs (24Hr): Vital Signs - 24 hr 08/02/24 20:00 08/03/24 08:00 Temperature 97.9 F 96.9 F Pulse Rate 91 94 Respiratory Rate 16 16 Blood Pressure 120/71 140/77 H Pulse Oximetry 97 98 Oxygen Delivery Method Room Air Room Air Labs Labs: Laboratory Results - last 48 hr 08/01/24 08/01/24 08/01/24 11:55 16:44 21:05 POC Glucose 313 H 388 H* 275 H 08/02/24 08/02/24 08/02/24 07:19 11:08 16:35 POC Glucose 309 H 350 H* 285 H 08/02/24 08/03/24 20:35 08:00 POC Glucose 309 H 412 H* Medications Medications Current Medications Acetaminophen (Acetaminophen 325 Mg Tablet) 650 mg PO Q6H PRN PRN Reason: Headache/Pain, Scale 1-10 Al Hydroxide/Mg Hydroxide (Magnesium Hydrox/Alum Hydrox 30 Ml Oral.Susp) 30 ml PO Q6H PRN PRN Reason: Heartburn/Nausea Benztropine Mesylate (Benztropine Mesylate 0.5 Mg Tablet) 0.5 mg PO BID PRN PRN Reason: Extrapyramidal Effects Dextrose (Dextrose 50 % 25 Gm/50 Ml Syringe) 25 gm IVPUSH Q15M PRN; Protocol PRN Reason: per Hypoglycemia Standing Ord. Glucose (Glucose Gel 15 Gm Gel..Gram.) 15 gm PO Q15M PRN; Protocol PRN Reason: per Hypoglycemia Standing Ord. Hydroxyzine HCl (Hydroxyzine Hcl 25 Mg Tablet) 25 mg PO Q6H PRN PRN Reason: mild anxiety Last Admin: 08/01/24 21:41 Dose: 25 mg Insulin Glargine (Insulin Glargine,Hum.Rec.Anlog 100 Unit/Ml 10 Ml Vial) 10 unit SUBCUT BEDTIME [facility] Last Admin: 08/02/24 22:33 Dose: 10 unit Insulin Human Lispro (Insulin Lispro 100 Unit/Ml 3 Ml Vial) 0 unit SUBCUT QIDACHS [facility]; Protocol Last Admin: 08/03/24 08:16 Dose: 10 unit Magnesium Hydroxide (Milk Of Magnesia 30 Ml Oral.Susp) 30 ml PO DAILY PRN PRN Reason: Constipation Metformin HCl (Metformin Hcl 500 Mg Tablet) 500 mg PO DAILY [facility] Last Admin: 08/03/24 08:18 Dose: 500 mg Nicotine Polacrilex (Nicotine Polacrilex 2 Mg Gum) 4 mg BUCCAL Q2H PRN PRN Reason: Nicotine Cravings Olanzapine (Olanzapine 10 Mg Tablet) 10 mg PO BEDTIME [facility] Last Admin: 08/02/24 22:33 Dose: 10 mg Olanzapine (Olanzapine 5 Mg Tablet) 5 mg PO Q4H PRN PRN Reason: agitation/psychosis Trazodone HCl (Trazodone Hcl 50 Mg Tablet) 50 mg PO BEDTIME MRX1 PRN PRN Reason: Insomnia Last Admin: 08/01/24 21:41 Dose: 50 mg Allergies Allergies Allergy/AdvReac Type Severity Reaction Status Date / Time cephalexin [From Keflex] Allergy Unknown Verified 07/31/24 14:04 latex Allergy Unknown Verified 07/31/24 14:04 Assessment & Plan Assessment & Plan (1) Schizoaffective disorder: Status: Acute Code(s): F25.9 - Schizoaffective disorder, unspecified (2) Cocaine use disorder: Status: Acute Code(s): F14.10 - Cocaine abuse, uncomplicated Plan Patient is a 63-year-old female with history of schizoaffective disorder and cocaine use disorder who presented to ED due to auditory hallucinations telling her to use drugs and harm herself secondary to stating that her medications are not effective. Plan: 3 day notice 15 minute safety checks Continue home medications Referral to outpatient psychiatric providers Encourage groups Discharge planning 08/02: Active on unit. Keeping to self. Medication compliant. Patient reports feeling good today; states that she slept well last night. Patient reports she is no longer having auditory hallucinations. Encouraged to attend groups. Denies SI/HI/VH/AH. 3 day is up on 08/06/24. Patient reports she plans on going to a [facility] in [place] after discharge. Continue current treatment plan. 08/03: Continue current regimen and plans Reason for continued inpatient stay Substantial Risk for: med/psych decompensation Time Spent With Patient Time: Total time managing care of this patient today ____ minutes.
[2024-08-03 11:55] LABS: Glucose, Whole Blood 392 mg/dL (60-115)
[2024-08-03 16:59] LABS: Glucose, Whole Blood 332 mg/dL (60-115)
[2024-08-03 20:00] VITALS: BP 125/71; PULSE 100; RESP 16; TEMP 36.3; O2SAT 99
[2024-08-03 20:22] LABS: Glucose, Whole Blood 234 mg/dL (60-115)
[2024-08-03] MEDS: OLANZapine 10 MG TABLET PO (21:38)
[2024-08-03] MEDS: Insulin Glargine,Hum.rec.anlog 100 UNIT/ML 10 ML VIAL 10 UNIT SUBCUT (21:38)
[2024-08-04] MEDS: Acetaminophen 325 MG TABLET 650 MG PO (01:33)
[2024-08-04 08:00] VITALS: BP 145/83; PULSE 94; RESP 16; TEMP 36.3; O2SAT 100
[2024-08-04 08:05] LABS: Glucose, Whole Blood 436 mg/dL (60-115)
[2024-08-04] MEDS: Insulin Lispro 100 UNIT/ML 3 ML VIAL SUBCUT ×4 (08:14→22:35)
[2024-08-04] MEDS: metFORMIN HCl 500 MG TABLET PO (08:16)
[2024-08-04] MEDS: Lidocaine 5 % Ointment 35 GM 1 APPL TOPICAL (09:54)
--- NOTE | 2024-08-04 10:13 | P.PNPSI_ITS ---
Subjective Subjective Date of Service: 08/04/24 Reason For Visit: f25.0,f50.3,f3.3 Subjective Notes: Conditional Voluntary and 3 Day Interim History: Patient was seen and discussed in rounds today. Records and plans were reviewed. She continues to be isolative and marginal on the unit. She has been complaining of a burning sensation at the bottom of her feet in a lidocaine gel was ordered which she has not used. Its availability he was brought to her attention. Eating and sleeping adequately. No SI. No changes were made. No changes were made Review of Systems Review of Systems Burning sensation at the bottom of her feet Yes all other systems are reviewed and are negative Mental Status Exam Mental Status Exam Narrative: In today's visit she is alert, oriented and pleasant. Normal speech. Moderate eye contact. Affect is contained. No signs of psychosis. No AVH. No SI. Cognitively is grossly intact. Judgment is intact. Able to move all limbs. No gait abnormalities Diagnostics Vital Signs (24Hr): Vital Signs - 24 hr 08/03/24 20:00 08/04/24 08:00 Temperature 97.4 F 97.4 F Pulse Rate 100 94 Respiratory Rate 16 16 Blood Pressure 125/71 145/83 H Pulse Oximetry 99 100 Oxygen Delivery Method Room Air Room Air Labs Labs: Laboratory Results - last 48 hr 08/02/24 08/02/24 08/02/24 11:08 16:35 20:35 POC Glucose 350 H* 285 H 309 H 08/03/24 08/03/24 08/03/24 08:00 11:51 16:54 POC Glucose 412 H* 392 H* 332 H 08/03/24 08/04/24 20:16 08:01 POC Glucose 234 H 436 H* Medications Medications Current Medications Acetaminophen (Acetaminophen 325 Mg Tablet) 650 mg PO Q6H PRN PRN Reason: Headache/Pain, Scale 1-10 Last Admin: 08/04/24 01:33 Dose: 650 mg Al Hydroxide/Mg Hydroxide (Magnesium Hydrox/Alum Hydrox 30 Ml Oral.Susp) 30 ml PO Q6H PRN PRN Reason: Heartburn/Nausea Benztropine Mesylate (Benztropine Mesylate 0.5 Mg Tablet) 0.5 mg PO BID PRN PRN Reason: Extrapyramidal Effects Dextrose (Dextrose 50 % 25 Gm/50 Ml Syringe) 25 gm IVPUSH Q15M PRN; Protocol PRN Reason: per Hypoglycemia Standing Ord. Glucose (Glucose Gel 15 Gm Gel..Gram.) 15 gm PO Q15M PRN; Protocol PRN Reason: per Hypoglycemia Standing Ord. Hydroxyzine HCl (Hydroxyzine Hcl 25 Mg Tablet) 25 mg PO Q6H PRN PRN Reason: mild anxiety Last Admin: 08/01/24 21:41 Dose: 25 mg Insulin Glargine (Insulin Glargine,Hum.Rec.Anlog 100 Unit/Ml 10 Ml Vial) 10 unit SUBCUT BEDTIME [facility] Last Admin: 08/03/24 21:38 Dose: 10 unit Insulin Human Lispro (Insulin Lispro 100 Unit/Ml 3 Ml Vial) 0 unit SUBCUT QIDACHS [facility]; Protocol Last Admin: 08/04/24 08:14 Dose: 10 unit Lidocaine (Lidocaine 5 % Ointment 35 Gm) 1 appl TOPICAL BID PRN; Protocol PRN Reason: Pain, Moderate(Pain Scale 4-6) Last Admin: 08/04/24 09:54 Dose: 1 appl Magnesium Hydroxide (Milk Of Magnesia 30 Ml Oral.Susp) 30 ml PO DAILY PRN PRN Reason: Constipation Metformin HCl (Metformin Hcl 500 Mg Tablet) 500 mg PO DAILY [facility] Last Admin: 08/04/24 08:16 Dose: 500 mg Nicotine Polacrilex (Nicotine Polacrilex 2 Mg Gum) 4 mg BUCCAL Q2H PRN PRN Reason: Nicotine Cravings Olanzapine (Olanzapine 10 Mg Tablet) 10 mg PO BEDTIME [facility] Last Admin: 08/03/24 21:38 Dose: 10 mg Olanzapine (Olanzapine 5 Mg Tablet) 5 mg PO Q4H PRN PRN Reason: agitation/psychosis Trazodone HCl (Trazodone Hcl 50 Mg Tablet) 50 mg PO BEDTIME MRX1 PRN PRN Reason: Insomnia Last Admin: 08/01/24 21:41 Dose: 50 mg Allergies Allergies Allergy/AdvReac Type Severity Reaction Status Date / Time cephalexin [From Keflex] Allergy Unknown Verified 07/31/24 14:04 latex Allergy Unknown Verified 07/31/24 14:04 Assessment & Plan Assessment & Plan (1) Schizoaffective disorder: Status: Acute Code(s): F25.9 - Schizoaffective disorder, unspecified (2) Cocaine use disorder: Status: Acute Code(s): F14.10 - Cocaine abuse, uncomplicated Plan Pt is a 63-year-old female with a PMH significant for HTN, insulin-dependent type 2 diabetes, and mood disorder who is admitted to [facility] for command auditory and visual hallucinations that are telling her to do drugs which pt reports she does not want to do. Hospitalist consult for admission H&P. Mood disorder Plan as per Psychiatry Hypertension Unclear if currently on any antihypertensives Previously on lisinopril BP has been elevated as high as 161/72 Continue clonidine Will continue to monitor BP, if remains elevated will start lisinopril 10mg daily Insulin-dependent type [address] on sliding scale insulin Will start on Lantus 10 units at bedtime Continue metformin Encouraged diabetic diet and diabetic snacking Thank you for allowing us to participate in the care of this patient. Signing off at this time. Please re-consult if any acute complaints or issues arise. 08/04: Continue current regimen and plans. Patient educated on: medication risk/benefits Reason for continued inpatient stay Substantial Risk for: med/psych decompensation Time Spent With Patient Time: Total time managing care of this patient today ____ minutes.
[2024-08-04 11:45] LABS: Glucose, Whole Blood 424 mg/dL (60-115)
[2024-08-04 16:41] LABS: Glucose, Whole Blood 361 mg/dL (60-115)
[2024-08-04 21:27] LABS: Glucose, Whole Blood 365 mg/dL (60-115)
--- NOTE | 2024-08-04 22:04 | PC.NURSE ---
POC 365. hospitalist notified. will administer lantus and sliding scale coverage as prdered.
[2024-08-04 22:33] VITALS: BP 126/83; PULSE 91; RESP 16; TEMP 36.7; O2SAT 99
[2024-08-04] MEDS: Insulin Glargine,Hum.rec.anlog 100 UNIT/ML 10 ML VIAL 10 UNIT SUBCUT (22:35)
[2024-08-04] MEDS: OLANZapine 10 MG TABLET PO (22:36)
[2024-08-04] MEDS: traZODone HCL 50 MG TABLET PO ×2 (22:43→23:49)
[2024-08-04] MEDS: OLANZapine 5 MG TABLET PO (23:49)
[2024-08-05 08:00] VITALS: BP 184/98; PULSE 99; RESP 14; TEMP 36.2; O2SAT 99
[2024-08-05 08:14] LABS: Glucose, Whole Blood 350 mg/dL (60-115)
[2024-08-05] MEDS: Insulin Lispro 100 UNIT/ML 3 ML VIAL SUBCUT ×4 (08:35→20:17)
[2024-08-05] MEDS: metFORMIN HCl 500 MG TABLET PO (08:37)
[2024-08-05 08:43] LABS: Estimated Average Glucose 258 mg/dL; Hemoglobin A1C 353.7216 umol/L; Hemoglobin A1c % 10.6 % (<6.0); Total Hemoglobin (HGBA1C) 3848.1574 umol/L
[2024-08-05 08:50] LABS: Cholesterol 254 mg/dL (<200); HDL Cholesterol 62 mg/dL (>40); LDL Cholesterol Calculated 161 mg/dL (<100); Triglycerides 158 mg/dL (<150)
[2024-08-05 09:06] LABS: Free T4 (Free Thyroxine) 0.87 ng/dL (0.71-1.85); Thyroid Stimulating Hormone 2.19 uIU/mL (0.32-4.0)
[2024-08-05 09:20] LABS: Folate 6.7 ng/mL (> or = 4.0); Vitamin B12 553 pg/mL (200-900)
--- NOTE | 2024-08-05 09:39 | HO.PSYCHPN ---
Subjective Subjective Date of Service: 08/05/24 Reason For Visit: f25.0,f50.3,f3.3 Subjective Notes: Conditional Voluntary and 3 Day Interim History: Patient was seen and discussed in rounds today. Records and plans were reviewed. She remains mostly to herself and in her room. She does come out for meals. There was an issue pertaining to a roommates dentures that were missing. A room search did not find them and since Dana does not have teeth staff have been wondering about her taking it and I did order a body search. Were also having security look at camera footage. No SI. No changes were made today Review of Systems Review of Systems Yes all other systems are reviewed and are negative Mental Status Exam Mental Status Exam Narrative: In today's visit she is alert, oriented and pleasant. Normal speech. Moderate eye contact. Affect is contained. No signs of psychosis. No AVH. No SI. Cognitively is grossly intact. Judgment is intact. Able to move all limbs. No gait abnormalities Diagnostics Vital Signs (24Hr): Vital Signs - 24 hr 08/04/24 22:33 08/05/24 08:00 Temperature 98.1 F 97.2 F Pulse Rate 91 99 Respiratory Rate 16 14 Blood Pressure 126/83 184/98 H Pulse Oximetry 99 99 Oxygen Delivery Method Room Air Room Air Labs Labs: Laboratory Results - last 48 hr 08/03/24 08/03/24 08/03/24 11:51 16:54 20:16 POC Glucose 392 H* 332 H 234 H Estimat Average Glucose Hemoglobin A1c % Triglycerides Cholesterol LDL Cholesterol, Calc HDL Cholesterol Vitamin B12 Folate TSH Free T4 08/04/24 08/04/24 08/04/24 08:01 11:39 16:37 POC Glucose 436 H* 424 H* 361 H* Estimat Average Glucose Hemoglobin A1c % Triglycerides Cholesterol LDL Cholesterol, Calc HDL Cholesterol Vitamin B12 Folate TSH Free T4 08/04/24 08/05/24 08/05/24 21:22 07:48 08:04 POC Glucose 365 H* 350 H* Estimat Average Glucose 258 Hemoglobin A1c % 10.6 H Triglycerides 158 H Cholesterol 254 H LDL Cholesterol, Calc 161 H HDL Cholesterol 62 Vitamin B12 553 Folate 6.7 TSH 2.19 Free T4 0.87 Medications Medications Current Medications Acetaminophen (Acetaminophen 325 Mg Tablet) 650 mg PO Q6H PRN PRN Reason: Headache/Pain, Scale 1-10 Last Admin: 08/04/24 01:33 Dose: 650 mg Al Hydroxide/Mg Hydroxide (Magnesium Hydrox/Alum Hydrox 30 Ml Oral.Susp) 30 ml PO Q6H PRN PRN Reason: Heartburn/Nausea Benztropine Mesylate (Benztropine Mesylate 0.5 Mg Tablet) 0.5 mg PO BID PRN PRN Reason: Extrapyramidal Effects Dextrose (Dextrose 50 % 25 Gm/50 Ml Syringe) 25 gm IVPUSH Q15M PRN; Protocol PRN Reason: per Hypoglycemia Standing Ord. Glucose (Glucose Gel 15 Gm Gel..Gram.) 15 gm PO Q15M PRN; Protocol PRN Reason: per Hypoglycemia Standing Ord. Hydroxyzine HCl (Hydroxyzine Hcl 25 Mg Tablet) 25 mg PO Q6H PRN PRN Reason: mild anxiety Last Admin: 08/01/24 21:41 Dose: 25 mg Insulin Glargine (Insulin Glargine,Hum.Rec.Anlog 100 Unit/Ml 10 Ml Vial) 10 unit SUBCUT BEDTIME [facility] Last Admin: 08/04/24 22:35 Dose: 10 unit Insulin Human Lispro (Insulin Lispro 100 Unit/Ml 3 Ml Vial) 0 unit SUBCUT QIDACHS [facility]; Protocol Last Admin: 08/05/24 08:35 Dose: 10 unit Lidocaine (Lidocaine 5 % Ointment 35 Gm) 1 appl TOPICAL BID PRN; Protocol PRN Reason: Pain, Moderate(Pain Scale 4-6) Last Admin: 08/04/24 09:54 Dose: 1 appl Magnesium Hydroxide (Milk Of Magnesia 30 Ml Oral.Susp) 30 ml PO DAILY PRN PRN Reason: Constipation Metformin HCl (Metformin Hcl 500 Mg Tablet) 500 mg PO DAILY [facility] Last Admin: 08/05/24 08:37 Dose: 500 mg Nicotine Polacrilex (Nicotine Polacrilex 2 Mg Gum) 4 mg BUCCAL Q2H PRN PRN Reason: Nicotine Cravings Olanzapine (Olanzapine 10 Mg Tablet) 10 mg PO BEDTIME [facility] Last Admin: 08/04/24 22:36 Dose: 10 mg Olanzapine (Olanzapine 5 Mg Tablet) 5 mg PO Q4H PRN PRN Reason: agitation/psychosis Last Admin: 08/04/24 23:49 Dose: 5 mg Trazodone HCl (Trazodone Hcl 50 Mg Tablet) 50 mg PO BEDTIME MRX1 PRN PRN Reason: Insomnia Last Admin: 08/04/24 23:49 Dose: 50 mg Allergies Allergies Allergy/AdvReac Type Severity Reaction Status Date / Time cephalexin [From Keflex] Allergy Unknown Verified 07/31/24 14:04 latex Allergy Unknown Verified 07/31/24 14:04 Assessment & Plan Assessment & Plan (1) Schizoaffective disorder: Status: Acute Code(s): F25.9 - Schizoaffective disorder, unspecified (2) Cocaine use disorder: Status: Acute Code(s): F14.10 - Cocaine abuse, uncomplicated Plan Pt is a 63-year-old female with a PMH significant for HTN, insulin-dependent type 2 diabetes, and mood disorder who is [facility] for command auditory and visual hallucinations that are telling her to do drugs which pt reports she does not want to do. Hospitalist consult for admission H&P. Mood disorder Plan as per Psychiatry Hypertension Unclear if currently on any antihypertensives Previously on lisinopril BP has been elevated as high as 161/72 Continue clonidine Will continue to monitor BP, if remains elevated will start lisinopril 10mg daily Insulin-dependent type [address] on sliding scale insulin Will start on Lantus 10 units at bedtime Continue metformin Encouraged diabetic diet and diabetic snacking Thank you for allowing us to participate in the care of this patient. Signing off at this time. Please re-consult if any acute complaints or issues arise. 2: Continue current regimen and plans. 08/05: Continue current regimen and plans. Body search ordered Reason for continued inpatient stay Substantial Risk for: med/psych decompensation Time Spent With Patient Time: Total time managing care of this patient today ____ minutes.
[2024-08-05 11:59] LABS: Glucose, Whole Blood 427 mg/dL (60-115)
[2024-08-05] MEDS: Milk of Magnesia 30 ML ORAL.SUSP PO (15:06)
[2024-08-05 16:45] LABS: Glucose, Whole Blood 337 mg/dL (60-115)
[2024-08-05] MEDS: bisacodyL 10 MG SUPP.RECT PR (18:19)
[2024-08-05 20:00] VITALS: BP 167/84; PULSE 102; RESP 18; TEMP 36.9; O2SAT 100
[2024-08-05 20:09] LABS: Glucose, Whole Blood 300 mg/dL (60-115)
[2024-08-05] MEDS: Insulin Glargine,Hum.rec.anlog 100 UNIT/ML 10 ML VIAL 10 UNIT SUBCUT (20:16)
[2024-08-05] MEDS: traZODone HCL 50 MG TABLET PO (20:17)
[2024-08-05] MEDS: OLANZapine 10 MG TABLET PO (20:17)
[2024-08-06 08:08] LABS: Glucose, Whole Blood 403 mg/dL (60-115)
[2024-08-06] MEDS: Insulin Lispro 100 UNIT/ML 3 ML VIAL SUBCUT (08:44)
[2024-08-06] MEDS: metFORMIN HCl 500 MG TABLET PO (08:44)
--- NOTE | 2024-08-06 10:00 | P.DS_ITS ---
DS: Providers Provider Date of Service: 08/06/24 Date of admission: 07/31/24 13:48 Date of discharge: 08/06/24 Primary care physician: Unknown Physician Admitting clinician: Rosie White Attending physician on admission: Michi Wu Consults: 07/31/24 18:22 Consult to Hospitalist Routine Comment: Consulting Provider: [facility] Hospitalists Reason For Exam: OSH admission Attending physician on discharge: Michi Wu Discharging clinician: Rosie White DS: Diagnosis Discharge Diagnosis (1) Schizoaffective disorder: Status: Acute (2) Cocaine use disorder: Status: Acute DS: Medications Discharge Medications Home Medications: Home Medications ?Medication ?Instructions ?Recorded ?Confirmed acetaminophen 650 mg 650 mg PO Q8H 07/31/24 07/31/24 tablet,extended release clonidine HCl 0.1 mg tablet 0.1 mg PO BID PRN anxiety 07/31/24 07/31/24 diclofenac sodium 3 % topical gel topical BID 07/31/24 doxepin 25 mg capsule 25 mg PO BEDTIME 07/31/24 07/31/24 hydroxyzine pamoate 50 mg capsule 50 mg PO Q4H PRN anxiety 07/31/24 07/31/24 insulin glargine 100 unit/mL (3 unit subcut 07/31/24 mL) subcutaneous pen (Lantus Solostar U-100 Insulin) ipratropium 20 mcg-albuterol 100 inhalation QID 07/31/24 mcg/actuation mist for inhalation (Combivent Respimat) lisinopril 5 mg tablet mg DAILY 07/31/24 lorazepam 1 mg tablet 1 mg PO DAILY PRN Anxiety 07/31/24 07/31/24 metformin 500 mg tablet 500 mg PO DAILY 07/31/24 07/31/24 olanzapine 10 mg tablet 10 mg PO BEDTIME 07/31/24 07/31/24 olanzapine 5 mg disintegrating 5 mg PO DAILY PRN Agitation 07/31/24 07/31/24 tablet risperidone 0.5 mg tablet 0.5 mg PO BEDTIME 07/31/24 07/31/24 Mental Status Exam Mental Status Exam Narrative: Pt is alert and oriented; behavior is cooperative and calm; dressed in casual attire; mood is described as good ; eye contact appropriate; Speech is normal rate, volume and not pressured; thought process is organized; Thought content is on tx; denies SI/HI/VH/AH. Data Data Completed and Pending Completed studies during hospitalization [Text1]: 07/31/24 08/01/24 08/01/24 20:04 07:33 11:55 POC Glucose 289 H 301 H 313 H Estimat Average Glucose Hemoglobin A1c % Triglycerides Cholesterol LDL Cholesterol, Calc HDL Cholesterol Vitamin B12 Folate TSH Free T4 08/01/24 08/01/24 08/02/24 16:44 21:05 07:19 POC Glucose 388 H* 275 H 309 H Estimat Average Glucose Hemoglobin A1c % Triglycerides Cholesterol LDL Cholesterol, Calc HDL Cholesterol Vitamin B12 Folate TSH Free T4 08/02/24 08/02/24 08/02/24 11:08 16:35 20:35 POC Glucose 350 H* 285 H 309 H Estimat Average Glucose Hemoglobin A1c % Triglycerides Cholesterol LDL Cholesterol, Calc HDL Cholesterol Vitamin B12 Folate TSH Free T4 08/03/24 08/03/24 08/03/24 08:00 11:51 16:54 POC Glucose 412 H* 392 H* 332 H Estimat Average Glucose Hemoglobin A1c % Triglycerides Cholesterol LDL Cholesterol, Calc HDL Cholesterol Vitamin B12 Folate TSH Free T4 08/03/24 08/04/24 08/04/24 20:16 08:01 11:39 POC Glucose 234 H 436 H* 424 H* Estimat Average Glucose Hemoglobin A1c % Triglycerides Cholesterol LDL Cholesterol, Calc HDL Cholesterol Vitamin B12 Folate TSH Free T4 08/04/24 08/04/24 08/05/24 16:37 21:22 07:48 POC Glucose 361 H* 365 H* Estimat Average Glucose 258 Hemoglobin A1c % 10.6 H Triglycerides 158 H Cholesterol 254 H LDL Cholesterol, Calc 161 H HDL Cholesterol 62 Vitamin B12 553 Folate 6.7 TSH 2.19 Free T4 0.87 08/05/24 08/05/24 08/05/24 08:04 11:55 16:38 POC Glucose 350 H* 427 H* 337 H Estimat Average Glucose Hemoglobin A1c % Triglycerides Cholesterol LDL Cholesterol, Calc HDL Cholesterol Vitamin B12 Folate TSH Free T4 08/05/24 08/06/24 20:04 07:58 POC Glucose 300 H 403 H* Estimat Average Glucose Hemoglobin A1c % Triglycerides Cholesterol LDL Cholesterol, Calc HDL Cholesterol Vitamin B12 Folate TSH Free T4 DS: Summary Hospital Course Hospital Course: Patient is a 63-year-old female with history of schizoaffective disorder and cocaine use disorder who presented to ED due to auditory hallucinations telling her to use drugs and harm herself secondary to stating that her medications are not effective. Per crisis report, patient reports she does not want to harm herself or to use substances. history of multiple inpatient psychiatric hospitalizations. depressed mood, decreased sleep. Patient reports using crack earlier in the day. Utox positive for cocaine. History of multiple detox and rehab admissions. Denies SI/HI/VH. Does not have outpatient psychiatric providers. During admission assessment, patient presents alert oriented x3. Calm and cooperative. Patient reports she came to the hospital due to hearing things and seeing things . Patient stated, they were saying bad things to me and telling me to do drugs for 3 days. I was seeing monsters . Patient reports smoking crack to make the voices go away . She denies feeling anxious or depressed; patient stated, she just wants medications to not have hallucinations . Denies history of SA/SIB. She reports smoking crack once or twice a month . States she does not have outpatient psychiatric providers but would like referrals. Reports she has been getting her psychiatric medications through her PCP. Patient denies SI/HI/VH/AH is time. Signed 3 day notice that is up on 08/06/24. Plan: 3 day notice 15 minute safety checks Continue home medications Referral to outpatient psychiatric providers Encourage groups Discharge planning Active on unit. Keeping to self. Medication compliant. Patient reports feeling good today; states that she slept well last night. Patient reports she is no longer having auditory hallucinations. Encouraged to attend groups. Denies SI/HI/VH/AH. 3 day is up on 08/06/24. Patient reports she plans on going to a skilled nursing in [place] after discharge. Continue current treatment plan. Patient reports feeling good and ready for discharge; denies SI/HI/VH/AH. Pt reports she plans on following up with her outpatient providers. Status at Discharge Cognitive/behavioral status at discharge: Patient has insight and demonstrates good judgment in terms of wanting to pursue treatment. Patient has a safety plan that includes presenting to the closest ER or calling 911 if feeling unsafe. Functional status at discharge: independent ambulation Overall status at discharge: patient is back to baseline Time Spent with Patient Time attestation: Total time managing care of this patient today _20___ minutes. Time spent: Less than 30 minutes Discharge Plan Discharge Anticipated Discharge Date/Time: 08/06/24 10:00 Patient Disposition: Home, Self-Care Discharge Diagnosis: Schizoaffective d/o, cocaine use d/o Referrals: Yonathan Brownlee ([facility]) [Other] - 08/13/24 10:00 am (Intake in person appointment) Lucrecia Cabreraabhishek ([facility]) [Other] - 09/10/24 9:00 am (In person) [facility] [Provider Group] - 1 Week (08-05-24 [facility] was added to patients chart. Please call [phone] to schedule a follow up appt within 7-10 days of your discharge.) Discharge Medications: New hydroxyzine HCl 25 mg Tablet 25 mg PO BID PRN (Reason: mild anxiety) 30 Days Qty: 60 0RF benztropine 0.5 mg Tablet 0.5 mg PO DAILY PRN (Reason: Extrapyramidal Effects) 30 Days Qty: 30 0RF trazodone 50 mg Tablet 50 mg PO BEDTIME PRN (Reason: Insomnia) 30 Days Qty: 30 0RF insulin lispro [Admelog U-100 Insulin lispro] 100 unit/mL Solution See Protocol subcut QIDACHS Qty: 10 0RF Protocol: Insulin Correction Scale Less than or equal to 110 ---- Give (units): 0 111 to 150 Give (units): 0 151 to 200 Give (units): 2 201 to 250 Give (units): 4 251 to 300 Give (units): 6 301 to 350 Give (units): 8 Greater than 350 Give (units): 10 Call MD if Blood Glucose > : 350 Continued diclofenac sodium 3 % gel topical BID insulin glargine [Lantus Solostar U-100 Insulin] 100 unit/mL (3 mL) insulin pen SUBCUT Combivent Respimat 20-100 mcg/actuation mist inhalation QID metformin 500 mg tablet 500 mg PO DAILY 30 Days Qty: 30 0RF olanzapine 10 mg tablet 10 mg PO BEDTIME 30 Days Qty: 30 0RF Discontinued clonidine HCl 0.1 mg tablet 0.1 mg PO BID PRN (Reason: anxiety) doxepin 25 mg capsule 25 mg PO BEDTIME hydroxyzine pamoate 50 mg capsule 50 mg PO Q4H PRN (Reason: anxiety) acetaminophen 650 mg tablet extended release 650 mg PO Q8H lisinopril 5 mg tablet DAILY lorazepam 1 mg tablet 1 mg PO DAILY PRN (Reason: Anxiety) risperidone 0.5 mg tablet 0.5 mg PO BEDTIME olanzapine 5 mg tablet,disintegrating 5 mg PO DAILY PRN (Reason: Agitation) Discharge Orders: Discharge Order (Routine); Ordered 08/06/24 Ordered By: Rosie White Diet: Regular diet Activity on Discharge: As tolerated Stand Alone Forms: Patient Portal Discharge page, Community Support Print Language: [place] Care Plan Goals: Maintain mood and safe behaviors Take medications as prescribed Continue to pursue sobriety Practice coping skills Continue with outpatient providers and reach out to them as needed Health Concerns: Mood stability and behaviors Sobriety Plan of Treatment: Follow up with your PCP, psychiatric provider and other outpatient providers regarding above concerns Take medications as prescribed Assessment: Patient has insight and demonstrates good judgment in terms of wanting to pursue treatment. Patient has a safety plan that includes presenting to the closest ER or calling 911 if feeling unsafe. Discharge Date/Time: 08/06/24 10:50
[2024-08-06] MEDS: Naloxone HCl Nasal TAKE HOME 4 MG SPRAY 8 MG NOSTRILALT (10:12)
== END 2024-08-06 10:50 | disposition home or self-care (01) | DRG 750 ==
PROVIDERS: Psychiatry & Neurology Psychiatry; Admitting Provider Psychiatry & Neurology Psychiatry; Responsible Provider Registered Nurse; Visit Provider Psychiatry & Neurology Psychiatry
DX: F25.9 Schizoaffective disorder, unspecified (principal); F14.10 Cocaine abuse, uncomplicated; I10 Essential (primary) hypertension; F17.210 Nicotine dependence, cigarettes, uncomplicated; Z59.02 Unsheltered homelessness; Z71.6 Tobacco abuse counseling; Z79.4 Long term (current) use of insulin; Z79.84 Long term (current) use of oral hypoglycemic drugs; Z79.899 Other long term (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
CPT/HCPCS: 36415; 80061; 82607; 82746; 82947; 83036; 84439; 84443

== ENCOUNTER → 2024-07-31 13:48 | Outpatient (BNV) | payer MEDICARE, SELFPAY | PROVIDERS: Admitting Provider Psychiatry & Neurology Psychiatry; Responsible Provider Registered Nurse; Visit Provider Student in an Organized Health Care Education/Training Program | DX: Z02.2 Encounter for examination for admission to residential institution (principal) | CPT/HCPCS: 99429 ==

== ENCOUNTER → 2024-07-31 13:48 | Outpatient (BNV) | payer OTHER, SELFPAY | PROVIDERS: Admitting Provider Psychiatry & Neurology Psychiatry; Responsible Provider Registered Nurse; Visit Provider Registered Nurse | DX: F25.0 Schizoaffective disorder, bipolar type (principal); F14.10 Cocaine abuse, uncomplicated; Z59.00 Homelessness unspecified | CPT/HCPCS: 99233 ==

== ENCOUNTER 2024-11-13 21:08 | Emergency (ER) | payer OTHER, SELFPAY ==
[2024-11-13 21:14] VITALS: BP 150/90; PULSE 80; O2SAT 100
[2024-11-13 21:15] VITALS: BMI 31.6
[2024-11-13 21:26] VITALS: BP 120/90; PULSE 94; RESP 18; TEMP 36.6; O2SAT 99
--- OUTSIDE RECORDS SUMMARY | 2024-11-13 21:39 | XMS_ITS | Encounter Summary ---
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 (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 LIPID PANEL WITH REFLEX TO DIRECT LDL Routine 07/13/2024 7:00 AM EST Other machine long goods helper (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 CBC WITH AUTO DIFFERENTIAL Routine 07/13/2024 7:00 AM EST Other intermediate (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 CBC AND DIFFERENTIAL Routine 07/13/2024 7:00 AM EST Other machine long goods helper (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 HEMOGLOBIN A1C Routine 07/13/2024 7:00 AM EST Other intermediate (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 COMPREHENSIVE METABOLIC PANEL Routine 07/13/2024 7:00 AM EST Other intermediate (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 documented in this encounter Results * (ABNORMAL) CBC auto differential (07/13/2024 7:00 AM EST) WBC 6.9 4.8 - 10.8 K/mcL LAB HEMETOLOGY METHOD 07/13/2024 11:[address] [facility] RBC 4.80 3.80 - 4.80 M/mcL LAB HEMETOLOGY METHOD 07/13/2024 11:[address] [facility] Hemoglobin 14.1 11.5 - 16.0 g/dL LAB HEMETOLOGY METHOD 07/13/2024 11:[address] [facility] Hematocrit 43.8 35.0 - 47.0 % LAB HEMETOLOGY METHOD 07/13/2024 11:[address] [facility] MCV 90.7 79.0 - 98.0 FL LAB HEMETOLOGY METHOD 07/13/2024 11:[address] [facility] MCH 29.2 27.0 - 32.0 pcg LAB HEMETOLOGY METHOD 07/13/2024 11:[address] [facility] MCHC 32.2 32.0 - 37.0 g/dL LAB HEMETOLOGY METHOD 07/13/2024 11:[address] [facility] RDW 12.7 11.0 - 15.0 % LAB HEMETOLOGY METHOD 07/13/2024 11:[address] [facility] Platelets 265 130 - 400 K/mcL LAB HEMETOLOGY METHOD 07/13/2024 11:[address] [facility] MPV 11.2(H) 7.0 - 11.0 FL LAB HEMETOLOGY METHOD 07/13/2024 11:[address] [facility] NRBC 0.0 <1.0 % LAB HEMETOLOGY METHOD 07/13/2024 11:[address] [facility] NRBC Absolute 0.00 <0.10 K/mcL LAB HEMETOLOGY METHOD 07/13/2024 11:[address] [facility] Neutrophils Relative 58.4 % LAB HEMETOLOGY METHOD 07/13/2024 11:[address] [facility] Lymphocytes Relative 31.4 % LAB HEMETOLOGY METHOD 07/13/2024 11:[address] [facility] Monocytes Relative 6.3 % LAB HEMETOLOGY METHOD 07/13/2024 11:[address] [facility] Eosinophils Relative 3.2 % LAB HEMETOLOGY METHOD 07/13/2024 11:[address] [facility] Basophils Relative 0.4 % LAB HEMETOLOGY METHOD 07/13/2024 11:[address] [facility] Immature Granulocytes Relative 0.3 % LAB HEMETOLOGY METHOD 07/13/2024 11:[address] [facility] Neutrophils Absolute 4.05 1.50 - 7.00 K/mcL LAB HEMETOLOGY METHOD 07/13/2024 11:[address] [facility] Lymphocytes Absolute 2.18 1.00 - 5.00 K/mcL LAB HEMETOLOGY METHOD 07/13/2024 11:[address] [facility] Monocytes Absolute 0.44 0.20 - 1.00 K/mcL LAB HEMETOLOGY METHOD 07/13/2024 11:[address] [facility] Eosinophils Absolute 0.22 0.00 - 0.50 K/[facility] LAB HEMETOLOGY METHOD 07/13/2024 11:09 AM EST [facility] Basophils Absolute 0.03 0.00 - 0.20 K/[facility] LAB HEMETOLOGY METHOD 07/13/2024 11:09 AM EST [facility] Immature Granulocytes Absolute 0.02 0.00 - 0.03 K/[facility] LAB HEMETOLOGY METHOD 07/13/2024 11:09 AM EST [facility] Blood Venous blood specimen / Unknown Venipuncture / Unknown 07/13/2024 7:00 AM EST 07/13/2024 10:13 AM EST [facility] LAB BLOOD ORDERABLES Final Resul t Performing Organization Address City/[facility]/ZIP Co de Phone Number [facility] [address] [place] [address], [place] [phone] * (ABNORMAL) Hemoglobin A1c (07/13/2024 7:00 AM EST) Hemoglobin A1C 10.3(H) <6.5 % LAB CHEMISTRY METHOD 07/14/2024 9:18 AM EST [facility] Mean Bld Glu Estim. 249 mg/dL LAB CHEMISTRY METHOD 07/14/2024 9:18 AM EST [facility] Blood Venous blood specimen / Unknown Venipuncture / Unknown 07/13/2024 7:00 AM EST 07/13/2024 10:13 AM EST [facility] LAB BLOOD ORDERABLES Final Resul t [facility] [address] [place] [address], [place] [phone] * Thyroid stimulating hormone with reflex to free t4 and free t3 (07/13/2024 7:00 AM EST) TSH 1.49 0.40 - 4.00 mcIU/mL LAB CHEMISTRY METHOD 07/13/2024 11:[address] [facility] Blood Venous blood specimen / Unknown Venipuncture / Unknown 07/13/2024 7:00 AM EST 07/13/2024 10:13 AM EST [facility] BLOOD ORDERABLES Final Resul t [facility] [address] [place] [address], [place] [phone] * (ABNORMAL) Lipid panel with reflex to direct LDL (07/13/2024 7:00 AM EST) Cholesterol 252(H) 0 - 200 mg/dL LAB CHEMISTRY METHOD 07/13/2024 11:[address] [facility] Triglycerides 208(H) 0 - 150 mg/dL LAB CHEMISTRY METHOD 07/13/2024 11:[address] [facility] HDL 45 >=40 mg/dL LAB CHEMISTRY METHOD 07/13/2024 11:[address] [facility] LDL Calculated 165(H) 0 - 100 mg/dL LAB CHEMISTRY METHOD 07/13/2024 11:[address] [facility] VLDL Cholesterol Damian 41.6 mg/dL LAB CHEMISTRY METHOD 07/13/2024 11:[address] [facility] Non HDL Chol. (LDL+VLDL) 207(H) <145 mg/dL LAB CHEMISTRY METHOD 07/13/2024 11:[address] [facility] Chol/HDL Ratio 5.6(H) 0.0 - 4.4 LAB CHEMISTRY METHOD 07/13/2024 11:[address] [facility] Blood Venous blood specimen / Unknown Venipuncture / Unknown 07/13/2024 7:00 AM EST 07/13/2024 10:13 AM EST [facility] BLOOD ORDERABLES Final Resul t [facility] [address] [place] [address], * (ABNORMAL) Comprehensive metabolic panel (07/13/2024 7:00 AM EST) Sodium 137 133 - 145 mmol/L LAB CHEMISTRY METHOD 07/13/2024 11:[address] [facility] Potassium 4.7 3.5 - 5.5 mmol/L LAB CHEMISTRY METHOD 07/13/2024 11:[address] [facility] Chloride 103 96 - 110 mmol/L LAB CHEMISTRY METHOD 07/13/2024 11:[address] [facility] CO2 28 21 - 32 mmol/L LAB CHEMISTRY METHOD 07/13/2024 11:[address] [facility] Anion Gap 6 3 - 11 LAB CHEMISTRY METHOD 07/13/2024 11:[address] [facility] Glucose 274(H) 70 - 100 mg/dL LAB CHEMISTRY METHOD 07/13/2024 11:[address] [facility] BUN 17 5 - 25 mg/dL LAB CHEMISTRY METHOD 07/13/2024 11:[address] [facility] Creatinine 0.83 0.50 - 1.10 mg/dL LAB CHEMISTRY METHOD 07/13/2024 11:[address] [facility] eGFR 79 >=60 mL/min/1. 73m2 LAB CHEMISTRY METHOD 07/13/2024 11:[address] [facility] Comment:Calculation based on the??Chronic Kidney Disease Epidemiology Collaboration (CKD-EPI) equation refit??without adjustment for race. BUN/Creatinine Ratio 20.5 LAB CHEMISTRY METHOD 07/13/2024 11:[address] [facility] Calcium 9.0 8.5 - 10.5 mg/dL LAB CHEMISTRY METHOD 07/13/2024 11:[address] [facility] AST (SGOT) 17 10 - 42 unit/L LAB CHEMISTRY METHOD 07/13/2024 11:[address] [facility] ALT (SGPT) 32 10 - 60 unit/L LAB CHEMISTRY METHOD 07/13/2024 11:[address] [facility] Alkaline Phosphatase 151(H) 42 - 121 unit/L LAB CHEMISTRY METHOD 07/13/2024 11:[address] [facility] Total Protein 6.6 6.0 - 8.0 g/dL LAB CHEMISTRY METHOD 07/13/2024 11:[address] [facility] Albumin 3.3 3.2 - 5.0 g/dL LAB CHEMISTRY METHOD 07/13/2024 11:[address] [facility] Total Bilirubin 0.2 0.0 - 1.4 mg/dL LAB CHEMISTRY METHOD 07/13/2024 11:[address] [facility] Blood Venous blood specimen / Unknown Venipuncture / Unknown 07/13/2024 7:00 AM EST 07/13/2024 10:13 AM EST [facility] LAB BLOOD ORDERABLES Final Resul t [facility] [address] [place] [address], documented in this encounter Visit Diagnoses Diagnosis Other intermediate (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 documented in this encounter Additional Health Concerns Infection Onset Date Last Indicated Resolved Time COVID-19 07/09/2024 07/09/2024 08/08/2024 7:06 PM EST Respiratory Rule-Out 11/06/2024 11/06/2024 025 12:07 AM EDT COVID-19 Rule-Out 11/06/2024 11/06/2024 11/07/2024 12:07 AM EDT documented as of this encounter Care Teams Exchange Underwriting Consultant Relationship Specialty Start Date End Date Merlin Rosales NP [address] [place] [id number] PCP - General 11/11/24 documented as of this encounter
--- NOTE | 2024-11-13 21:43 | PC.NURSE ---
Addendum entered by Cheyenne Rosales 11/13/24 21:45: shelf #2 Original Note: [facility]
[2024-11-13 22:00] VITALS: BP 108/57; PULSE 83; RESP 16; TEMP 36.3; O2SAT 98
--- NOTE | 2024-11-14 00:44 | ED.GENADULT ---
HPI - General Adult General Chief complaint: Ear Problems Stated complaint: ear infection, from [facility] Time Seen by Provider: 11/13/24 22:13 Source: patient Limitations: other ( psychiatric illness) History of Present Illness ED Provider: Akanksha Galindo PA-C HPI narrative: 63-year-old female with a history of schizoaffective disorder, cocaine abuse, housing and security and diabetes presents with right ear pain x6 days. Associated nasal congestion. Denies fever Related Data Home Medications ?Medication ?Instructions ?Recorded ?Confirmed diclofenac sodium 3 % topical gel topical BID 07/31/24 insulin glargine 100 unit/mL (3 unit subcut 07/31/24 mL) subcutaneous pen (Lantus Solostar U-100 Insulin) ipratropium 20 mcg-albuterol 100 inhalation QID 07/31/24 mcg/actuation mist for inhalation (Combivent Respimat) Previous Rx's ?Medication ?Instructions ?Recorded benztropine 0.5 mg tablet 0.5 mg PO DAILY PRN Extrapyramidal 08/06/24 Effects 30 days #30 tabs hydroxyzine HCl 25 mg tablet 25 mg PO BID PRN mild anxiety 30 08/06/24 days #60 tabs insulin lispro 100 unit/mL See Protocol subcut QIDACHS #10 mL 08/06/24 subcutaneous solution (Admelog U-100 Insulin lispro) metformin 500 mg tablet 500 mg PO DAILY 30 days #30 tabs 08/06/24 olanzapine 10 mg tablet 10 mg PO BEDTIME 30 days #30 tabs 08/06/24 trazodone 50 mg tablet 50 mg PO BEDTIME PRN Insomnia 30 08/06/24 days #30 tabs amoxicillin 875 mg-potassium 1 tab PO Q12H #19 tabs 11/14/24 clavulanate 125 mg tablet ofloxacin 0.3 % ear drops 10 drp otic (ear) right BID 14 11/14/24 days #10 mL Allergies Allergy/AdvReac Type Severity Reaction Status Date / Time cephalexin [From Keflex] Allergy Unknown Verified 11/13/24 21:17 latex Allergy Unknown Verified 11/13/24 21:17 Review of Systems Review of Systems: Yes all other systems are reviewed and are negative Constitutional: Constitutional: Denies fever(s) and Denies headache(s) ENT: Denies dizziness, Reports otalgia, Denies headache(s) and Reports nasal congestion Cardiovascular: Cardiovascular: Denies chest pain Respiratory: Respiratory: Denies cough Gastrointestinal: Gastrointestinal: Denies abdominal pain, Denies nausea and Denies vomiting Neurologic: Denies dizziness and Denies headache(s) [facility] Past Medical History Attestation statement: The following information was validated with the patient. Medical History (Updated 11/14/24 @ 00:59 by PAUL Witt) Medical clearance for psychiatric admission Insulin dependent type 2 diabetes mellitus HTN (hypertension) Social History Social History Household Members: None Housing: Homeless Do you presently have visiting nurse or other home services: No Patient Tobacco Use Status: Current everyday Tobacco user Cigarette Packs Per Day: 0.5 Cigarettes Per Day: 10.0 Second Hand Smoke Exposure: No Substance Use Type: Crack/Cocaine Advance Directives: No Advance Directives Information Provided: No Do you have a plan to hurt others: No Plan service: No Sexual orientation: Straight/Heterosexual Physical Exam ED Vital Signs: Vital Signs - 24 hr 11/13/24 21:26 11/13/24 22:00 Temperature 97.8 F 97.4 F Pulse Rate 94 83 Respiratory Rate 18 16 Blood Pressure 120/90 H 108/57 L Pulse Oximetry 99 98 Oxygen Delivery Method Room Air Room Air BMI result Body Mass Index 31.6 Const Other: Alert Orientation/consciousness: patient oriented x3 HENMT Other: Unable to completely visualize the right TM, the external ear canal is erythematous with exudate versus cerumen, what I can visualize of the TM it is opaque, tragal tenderness on exam Resp Effort & Inspection: normal respiratory effort Cardio Other: Normal peripheral perfusion Skin Other: Warm dry no rash Neuro General: patient oriented x3, gait normal, no focal motor deficits and CN's II-XI intact bilaterally Psych Other: Cooperative Medications Administered Discontinued Medications Generic Name Dose Route Start Last Admin Trade Name Freq PRN Reason Stop Dose Admin Amoxicillin/Clavulanate Potassium 875 mg 11/14/24 00:58 11/14/24 01:14 Amoxicillin/Potassium Clav 875 Mg Tablet PO 11/14/24 00:59 875 mg ONCE ONE Administration Lorazepam 1 mg 11/14/24 01:02 11/14/24 01:14 Lorazepam 1 Mg Tablet PO 11/14/24 01:03 1 mg ONCE ONE Administration Trazodone HCl 50 mg 11/14/24 01:02 11/14/24 01:14 Trazodone Hcl 50 Mg Tablet PO 11/14/24 01:03 50 mg ONCE ONE Administration Medical Decision Making Medical Decision Making MDM Narrative: 63-year-old female with a history of schizoaffective disorder, cocaine abuse, housing and security and diabetes presents with right ear pain x6 days. Associated nasal congestion. Denies fever Problem: Psychiatric illness, substance abuse, diabetes History: Per patient I have considered the following differential diagnoses: Om, OE, serous otitis, viral syndrome, mastoiditis, cerumen impaction Plan: Per EMS, staff viewed the ear and they felt she had a cerumen impaction. There was some cerumen within the external ear canal, but there was much more going on. She has evidence of both otitis externa and otitis media. We will treat for both. She has no headache or head pain to suggest mastoiditis, she is also afebrile and stable. Discharge Plan Discharge Clinical Impression: Otitis externa, Otitis media Patient Disposition: Home, Self-Care Instructions: Swimmer's Ear (ED), Ear Infection (ED) Additional Instructions: You are being treated for both an inner and outer ear infection. See home care instructions. Take the Augmentin as directed, complete the course of antibiotics. Use the ear drops as directed as well. Follow up with your primary care provider in a week. Prescriptions: New amoxicillin-pot clavulanate 875-125 mg tablet 1 tab PO Q12H Qty: 19 0RF ofloxacin 0.3 % drops 10 drp otic (ear) right BID 14 Days Qty: 10 0RF No Action diclofenac sodium 3 % gel topical BID insulin glargine [Lantus Solostar U-100 Insulin] 100 unit/mL (3 mL) insulin pen SUBCUT Combivent Respimat 20-100 mcg/actuation mist inhalation QID hydroxyzine HCl 25 mg Tablet 25 mg PO BID PRN (Reason: mild anxiety) 30 Days Qty: 60 0RF benztropine 0.5 mg Tablet 0.5 mg PO DAILY PRN (Reason: Extrapyramidal Effects) 30 Days Qty: 30 0RF trazodone 50 mg Tablet 50 mg PO BEDTIME PRN (Reason: Insomnia) 30 Days Qty: 30 0RF insulin lispro [Admelog U-100 Insulin lispro] 100 unit/mL Solution See Protocol subcut QIDACHS Qty: 10 0RF Protocol: Insulin Correction Scale Less than or equal to 110 ---- Give (units): 0 111 to 150 Give (units): 0 151 to 200 Give (units): 2 201 to 250 Give (units): 4 251 to 300 Give (units): 6 301 to 350 Give (units): 8 Greater than 350 Give (units): 10 Call MD if Blood Glucose > : 350 metformin 500 mg tablet 500 mg PO DAILY 30 Days Qty: 30 0RF olanzapine 10 mg tablet 10 mg PO BEDTIME 30 Days Qty: 30 0RF Interventions: ED Discharge Assessment Last Done: 11/14/24 01:17 Print Language: Unable To Collect
[2024-11-14] MEDS: traZODone HCL 50 MG TABLET PO (01:14)
[2024-11-14] MEDS: LORazepam 1 MG TABLET PO (01:14)
[2024-11-14] MEDS: Amoxicillin/Potassium Clav 875 MG TABLET PO (01:14)
[2024-11-14 01:17] VITALS: BP 103/66; PULSE 88; RESP 16; TEMP 36.4; O2SAT 100
== END 2024-11-14 04:23 ==
PROVIDERS: Emergency Provider Emergency Medicine
DX: H60.91 Unspecified otitis externa, right ear (principal); H66.91 Otitis media, unspecified, right ear; H92.01 Otalgia, right ear; F14.10 Cocaine abuse, uncomplicated; F25.9 Schizoaffective disorder, unspecified; E11.9 Type 2 diabetes mellitus without complications; I10 Essential (primary) hypertension; F17.210 Nicotine dependence, cigarettes, uncomplicated; Z79.4 Long term (current) use of insulin
CPT/HCPCS: 99284